=== PATIENT | female | born 1935 | race Caucasian/White ===

== ENCOUNTER → 2017-05-26 | Outpatient (REF) | payer MEDICARE ==
[2017-05-26 12:48] LABS: MEAN CORPUSCULAR HEMOGLOBIN 31.1 pg (27.0-33.0); MEAN CORPUSCULAR HGB CONC 32.6 g/dl (32.0-36.5); MEAN CORPUSCULAR VOLUME 95.4 fl (80.0-96.0); PLATELET COUNT, AUTOMATED 162 10^3/uL (150-450); RED CELL DISTRIBUTION WIDTH 12.2 % (11.5-14.5); WHITE BLOOD COUNT 5.8 10^3/uL (4.0-10.0)
[2017-05-26 13:09] LABS: ADD MANUAL DIFFER YES; DIFF SLIDE NUMBER 137; PLT CLUMPS? POS FLAG; POS COUNT POS FLAG
[2017-05-26 13:20] LABS: ALBUMIN 3.8 GM/DL (3.2-5.2); ALBUMIN/GLOBULIN RATIO 1.15 (1.00-1.93); ALKALINE PHOSPHATASE 73 U/L (45-117); ALT/SGPT 18 U/L (12-78); ANION GAP 6 MEQ/L (8-16); AST/SGOT 11 U/L (7-37); BILIRUBIN,TOTAL 0.4 MG/DL (0.2-1.0); BLOOD UREA NITROGEN 20 MG/DL (7-18); CALCIUM LEVEL 9.7 MG/DL (8.8-10.2); CARBON DIOXIDE LEVEL 29 MEQ/L (21-32); CHLORIDE LEVEL 105 MEQ/L (98-107); CHOLESTEROL LEVEL 237 MG/DL (<200); CREATININE FOR GFR 0.77 MG/DL (0.55-1.02); GLOMERULAR FILTRATION RATE > 60.0 (>32); GLUCOSE, FASTING 98 MG/DL (83-110); SODIUM LEVEL 140 MEQ/L (136-145); TOTAL PROTEIN 7.1 GM/DL (6.4-8.2); TRIGLYCERIDES LEVEL 230 MG/DL (<150)
[2017-05-26 13:23] LABS: POTASSIUM SERUM 5.4 MEQ/L (3.5-5.1)
[2017-05-26 13:26] LABS: BASOPHILS 1 % (0-4); EOSINOPHILS 2 % (0-5)
== END ==
LOC: M SFHCADAM 09:25
PROVIDERS: ATTEND Physician Assistant Medical
DX: E78.4 Other hyperlipidemia (principal); G47.00 Insomnia, unspecified

== ENCOUNTER 2018-04-12 05:57 | Day surgery (SDC) | payer MEDICARE ==
[2018-04-12] MEDS: OFLOXACIN 0.3 % (OCUFLOX) OPTH SOL 5ML OD (06:41)
[2018-04-12] MEDS: PROPARACAINE 0.5% OPHTH SOL 15ML OD (06:41)
[2018-04-12] MEDS: BALANCED SALT IRRIGATION SOLUTION 500ML BAG (FOR OR EYE MACHINE) As Ordered (06:56)
[2018-04-12] MEDS: ACETYLCHOLINE OPHTH SOLN 1% 2ML (MIOCHOL-E) As Ordered (06:57)
[2018-04-12] MEDS: LIDOCAINE 0.75%/EPINEPHRINE 0.025% IN BSS 1ML SYR INTRACAMERAL (OR ONLY) As Ordered ×2 (06:57→07:02)
[2018-04-12] MEDS: DUOVISC (0.50ML VISCOAT/0.55ML PROVISC) OPHTH KIT As Ordered (06:57)
[2018-04-12] MEDS: MOXIFLOXACIN IN BSS 0.25MG/0.25ML INTRACAMERAL INJ (OR EYE ONLY)(J2280) As Ordered (07:04)
[2018-04-12] MEDS ORDERED: fentaNYL 100 MCG/2 ML INJECTION (J3010) As Ordered (07:06)
[2018-04-12] MEDS ORDERED: MIDAZOLAM INJ 2 MG/2 ML VIAL (J2250) As Ordered (07:06)
[2018-04-12] MEDS: POVIDONE-IODINE 5% OPHTH PREP SOL 30ML As Ordered (07:32)
== END 2018-04-12 08:30 | disposition home or self-care (01) ==
LOC: M SDC 05:57
DX: H52.201 Unspecified astigmatism, right eye (principal); M12.9 Arthropathy, unspecified; Z90.710 Acquired absence of both cervix and uterus; Z94.7 Corneal transplant status
CPT/HCPCS: 65772

== ENCOUNTER → 2018-05-15 | Outpatient (REF) | payer MEDICARE ==
[2018-05-15 20:12] LABS: ANION GAP 5 MEQ/L (8-16); BLOOD UREA NITROGEN 13 MG/DL (7-18); CALCIUM LEVEL 9.4 MG/DL (8.8-10.2); CARBON DIOXIDE LEVEL 31 MEQ/L (21-32); CHLORIDE LEVEL 102 MEQ/L (98-107); CREATININE FOR GFR 0.67 MG/DL (0.55-1.30); GLOMERULAR FILTRATION RATE > 60.0 (>32); GLUCOSE, FASTING 75 MG/DL (70-100); SODIUM LEVEL 138 MEQ/L (136-145)
[2018-05-15 20:13] LABS: APPEARANCE, URINE CLEAR (CLEAR); BACTERIA, URINE AUTO 1+ (NEGATIVE); BILIRUBIN, URINE AUTO NEGATIVE (NEGATIVE); BLOOD, URINE BLOOD 1+ (NEGATIVE); COLOR, URINE YELLOW (YELLOW); GLUCOSE, URINE (UA) AUTO NEGATIVE (NEGATIVE); KETONE, URINE AUTO NEGATIVE (NEGATIVE); LEUKOCYTE ESTERASE, URINE AUTO 3+ (NEGATIVE); NITRITE, URINE AUTO NEGATIVE (NEGATIVE); PROTEIN, URINE AUTO NEGATIVE (NEGATIVE); RBC, URINE AUTO 1 /HPF (0-3); SPECIFIC GRAVITY URINE AUTO 1.005 (1.002-1.035); SQUAMOUS EPITHELIAL CELL UR AU 1 /HPF (0-6); UROBILINOGEN, URINE AUTO 0.2 mg/dL (0.0-2.0); WBC, URINE AUTO 34 /HPF (0-3)
== END ==
LOC: M SFHCADAM 15:49
DX: N39.41 Urge incontinence (principal); M17.11 Unilateral primary osteoarthritis, right knee
CPT/HCPCS: 80048

== ENCOUNTER → 2019-05-02 | Outpatient (REF) | payer MEDICARE ==
[~2019-05-02] MED LIST: DICL75TA PO; TYLE500T78 PO; VITA100066 PO
[2019-05-02 17:00] LABS: BASO # 0.1 10^3/uL (0.0-0.2); EOS # 0.5 10^3/uL (0.0-0.5); EOS % 7.2 % (0.0-3.0); HEMATOCRIT 40.9 % (36.0-47.0); HEMOGLOBIN 13.1 g/dl (12.0-15.5); LYMPH # 2.3 10^3/uL (1.5-5.0); LYMPH % 34.3 % (24.0-44.0); MEAN CORPUSCULAR HEMOGLOBIN 31.5 pg (27.0-33.0); MEAN CORPUSCULAR VOLUME 98.3 fl (80.0-96.0); MONO # 0.6 10^3/uL (0.0-0.8); MONO % 8.9 % (0.0-5.0); NEUTROPHILS # 3.3 10^3/uL (1.5-8.5); NEUTROPHILS % 48.3 % (36.0-66.0); PLATELET COUNT, AUTOMATED 240 10^3/uL (150-450); RED BLOOD COUNT 4.16 10^6/uL (4.00-5.40); WHITE BLOOD COUNT 6.8 10^3/uL (4.0-10.0)
[2019-05-02 17:09] LABS: ALBUMIN 3.6 GM/DL (3.2-5.2); ALT/SGPT 24 U/L (12-78); BILIRUBIN,TOTAL 0.3 MG/DL (0.2-1.0); BLOOD UREA NITROGEN 21 MG/DL (7-18); CALCIUM LEVEL 9.6 MG/DL (8.8-10.2); CARBON DIOXIDE LEVEL 31 MEQ/L (21-32); CHLORIDE LEVEL 105 MEQ/L (98-107); CHOLESTEROL LEVEL 241 MG/DL (<200); CHOLESTEROL RISK RATIO 4.918 (<5); CREATININE FOR GFR 0.82 MG/DL (0.55-1.30); GLOMERULAR FILTRATION RATE > 60.0 (>32); GLUCOSE, FASTING 78 MG/DL (70-100); HDL CHOLESTEROL 49 MG/DL (>40); LDL CHOLESTEROL 127 MG/DL (<100); NON-HDL-C 192 MG/DL; POTASSIUM SERUM 4.9 MEQ/L (3.5-5.1); SODIUM LEVEL 139 MEQ/L (136-145); TRIGLYCERIDES LEVEL 324 MG/DL (<150)
== END ==
LOC: M SFHCADAM 13:19
PROVIDERS: ATTEND Physician Assistant Medical
DX: E78.5 Hyperlipidemia, unspecified (principal); G47.00 Insomnia, unspecified; M17.11 Unilateral primary osteoarthritis, right knee

== ENCOUNTER → 2019-07-04 | Outpatient (CLI) | payer MEDICARE ==
--- NOTE | 2019-07-04 12:22 | REP ---
DIGITAL DIAGNOSTIC BILATERAL MAMMOGRAPHY WITH CAD: HISTORY: Screening mammography from an outside facility May 30, 2019 was reported as bilaterally abnormal. Diagnostic imaging was recommended. This patient had a remote prior mammography as well and this was retrieved from [facility] dated June 20, 2012. Screening study from 05/30/2019 was read as showing a 7 mm nodule in the right breast 4 cm from the nipple and a 3 mm nodule in the right breast inferiorly. In addition there was an asymmetric fibroglandular tissue density in the right breast upper outer quadrant reported. The left breast mammogram was reported as showing a 5 mm circumscribed rounded nodule on the MLO view superiorly possible intramammary lymph node. MAMMOGRAPHIC FINDINGS: Magnified focal spot compression CC and MLO views of each breast were obtained along with magnified true mediolateral projection images. There are scattered fibroglandular densities. In comparison with the 2011 prior mammography, the findings are entirely unchanged. The asymmetric density is seen in the upper outer quadrant on the right. Stable well-circumscribed nodules are seen in the upper outer quadrant and inferior aspect of the right breast. There are bilateral normal-appearing lymph nodes which are unchanged. This includes a lymph node in question in the left axillary region. This is 6 mm in diameter. IMPRESSION: BIRADS 2: BI-RADS/ACR category 2 mammogram. Benign Findings. Findings are stable from the 2012 prior mammography. BIRADS category 2 benign findings. Repeat screening mammography recommended 1 year. This mammogram was interpreted with the aid of an FDA-approved computer-aided detection system. The patient states that she/he has not had a clinical breast exam in over a year. The patient letter being requested is M1. This patient's estimated Tyrer-Cuzick lifetime risk assessment for the breast cancer is 0.9 %. Electronically Signed by Ivan Marquis MD 07/04/2019 06:27 P
== END ==
LOC: M RAD 08:54
PROVIDERS: ATTEND Physician Assistant Medical
DX: R92.8 Other abnormal and inconclusive findings on diagnostic imaging of breast (principal)
CPT/HCPCS: 77066; G0279

== ENCOUNTER → 2020-06-23 | Outpatient (REF) | payer MEDICARE ==
[2020-06-23 12:48] LABS: BASO # 0.1 10^3/uL (0.0-0.2); BASO % 1.2 % (0.0-1.0); EOS # 0.4 10^3/uL (0.0-0.5); EOS % 5.3 % (0.0-3.0); HEMATOCRIT 41.3 % (36.0-47.0); HEMOGLOBIN 13.3 g/dl (12.0-15.5); LYMPH # 2.7 10^3/uL (1.5-5.0); LYMPH % 36.3 % (24.0-44.0); MEAN CORPUSCULAR HEMOGLOBIN 31.3 pg (27.0-33.0); MEAN CORPUSCULAR HGB CONC 32.2 g/dl (32.0-36.5); MEAN CORPUSCULAR VOLUME 97.2 fl (80.0-96.0); MONO # 0.6 10^3/uL (0.0-0.8); MONO % 7.7 % (0.0-5.0); NEUTROPHILS # 3.6 10^3/uL (1.5-8.5); NEUTROPHILS % 49.2 % (36.0-66.0); PLATELET COUNT, AUTOMATED 185 10^3/uL (150-450); RED BLOOD COUNT 4.25 10^6/uL (4.00-5.40); WHITE BLOOD COUNT 7.4 10^3/uL (4.0-10.0)
[2020-06-23 13:44] LABS: ALBUMIN 3.6 GM/DL (3.2-5.2); ALT/SGPT 18 U/L (12-78); BILIRUBIN,TOTAL 0.5 MG/DL (0.2-1.0); BLOOD UREA NITROGEN 19 MG/DL (7-18); CALCIUM LEVEL 10.1 MG/DL (8.8-10.2); CARBON DIOXIDE LEVEL 30 MEQ/L (21-32); CHLORIDE LEVEL 105 MEQ/L (98-107); CHOLESTEROL LEVEL 260 MG/DL (<200); CHOLESTEROL RISK RATIO 5.306 (<5); CREATININE FOR GFR 0.73 MG/DL (0.55-1.30); GLOMERULAR FILTRATION RATE > 60.0 (>32); GLUCOSE, FASTING 76 MG/DL (70-100); HDL CHOLESTEROL 49 MG/DL (>40); LDL CHOLESTEROL 163 MG/DL (<100); NON-HDL-C 211 MG/DL; POTASSIUM SERUM 4.9 MEQ/L (3.5-5.1); SODIUM LEVEL 140 MEQ/L (136-145); TOTAL PROTEIN 6.9 GM/DL (6.4-8.2); TRIGLYCERIDES LEVEL 238 MG/DL (<150)
== END ==
LOC: M SFHCADAM 09:44
PROVIDERS: ATTEND Physician Assistant Medical
DX: E78.5 Hyperlipidemia, unspecified (principal); G47.00 Insomnia, unspecified

== ENCOUNTER 2020-08-07 14:12 | Inpatient (IN) | payer MEDICARE ==
[~2020-08-07] VITALS: Ht 167.6 cm; Wt 75.9 kg
[2020-08-07 10:20] VITALS: BP 132/83
[2020-08-07 10:50] VITALS: BP 140/68
[~2020-08-07 14:12] MED LIST changes: -ACET500T15 PO; -D31000TA2 PO; -DOK1CAP7 PO; -FISH1000 PO; -MOM30SS2 PO; -PERCOCET PO; -REST0.05 OU; -VITA-158 PO; -XARE10TA PO; -ZINC1TAB2 PO
--- OUTSIDE RECORDS SUMMARY | 2020-08-07 14:17 | CCD ---
Author Author [facility] Organization [facility] Address Unknown Phone Unavailable Care Team Providers Care Vibrator Operator Name Role Phone Elda Drew Unavailable PROBLEMS Type Condition ICD9-CM Code [id number] Code Onset Dates Condition S tatus SNOMED Code Notes Problem Urge incontinence N39.41 Active 11100290 Problem Abnormal mammogram of both breasts R92.8 Activ e 003787282 Problem Hyperlipidemia, unspecified E78.5 Active 5582 2004 Problem Insomnia, unspecified G47.00 Active 531697750 Problem Primary osteoarthritis of right knee M17.11 Act crissy [id number] ALLERGIES No Known Allergies ENCOUNTERS from 1937 to 2020-06-25 Encounter Location Date Provider Diagnosis [address] [place] [address] 29 May, 2020 Mar ben Drew Medicare annual wellness visit, subsequent Z00.00 ; Hyperlipidemia, unspecified E78.5 ; Insomnia, unspecified G47.00 and Primary osteoarthritis of right knee M17.11 IMMUNIZATIONS Vaccine Route Administration Date Status Zoster 0.65mL (Zostavax) Unknown Jun 05, 2013 Adminis tered TDAP 0.5mL (Boostrix) IM Intramuscular December 26, 2013 Administe red SOCIAL HISTORY Sex Assigned At : Social History Observation Description Sex Assigned At Unknown Education: Question Answer Notes Level of Education: Not Finished College Audit Question Answer Notes Total Score: 0 Interpretation: Alcohol Education Language: Question Answer Notes Languages spoken: Mongolian Muslim: Question Answer Notes Muslim [employer] and Alcohol Question Answer Notes Total Score: 0 Interpretation: No problems reported Alcohol Screening: Question Answer Notes Did you have a drink containing alcohol in the past year? Ye s Points 1 Interpretation Negative How often did you have six or more drinks on one occas ion in the past year? Never (0 points) How many drinks did you have on a typica l day when you were drinking in the past year? 1 or 2 (0 points) How often did you have a drink containing alcohol in t he past year? Monthly or less (1 point) BMI Care Goal Follow-Up Question Answer Notes Above Normal BMI Follow-Up Weight monitoring REASON FOR REFERRAL No Information VITAL SIGNS Weight 177 lbs May, Height 66 in May, BMI 28.57 kg/m2 May, Heart Rate 115 /min May, Respiratory Rate 20 /min May, Temperature 97.5 degrees Fahrenheit May, Oximetry 97 May, Blood pressure systolic 140 mm Hg May, Blood pressure diastolic 66 mm Hg May, MEDICATIONS Medication SIG (Take, Route, Frequency, Duration) Notes Start Da te End Date Status Tessalon Perles 100 MG 1 capsule as needed Orally Three times a day for 10 Active Diclofenac Sodium 75 mg 1 tablet Orally Once a day for 90 Active Alprazolam 0.25 MG 1 tablet Orally before bed as needed for 30 d ay(s) Jun, Active Tylenol 325 MG 2 tabs Orally Daily A ctive Oxybutynin Chloride ER 5 MG 1 tablet Orally Once a day for 90 Not-Taking PROCEDURES No Information RESULTS Component Value Reference Range CBC with Differential Reviewed date:06/23/2020 13:51:51 Interpretation: Performing Lab:[facility], [facility] [address] [address] , ,[place] [address] WHITE BLOOD COUNT 7.4 4.0-10.0 RED BLOOD COUNT 4.25 4.00-5.40 HEMOGLOBIN 13.3 12.0-15.5 HEMATOCRIT 41.3 36.0-47.0 MEAN CORPUSCULAR VOLUME 97.2 80.0-96.0 MEAN CORPUSCULAR HEMOGLOBIN 31.3 27.0-33.0 MEAN CORPUSCULAR HGB CONC 32.2 32.0-36.5 RED CELL DISTRIBUTION WIDTH 12.1 11.5-14.5 PLATELET COUNT, AUTOMATED 185 150-450 NEUTROPHILS % 49.2 36.0-66.0 LYMPH % 36.3 24.0-44.0 MONO % 7.7 0.0-5.0 EOS % 5.3 0.0-3.0 BASO % 1.2 0.0-1.0 NEUTROPHILS # 3.6 1.5-8.5 LYMPH # 2.7 1.5-5.0 MONO # 0.6 0.0-0.8 EOS # 0.4 0.0-0.5 BASO # 0.1 0.0-0.2 Comprehensive Metabolic Profile (CMP) Reviewed date:06/23/2020 13:51:51 Interpretation: Performing Lab:[facility] [address] [facility] [address] , ,[place] [address] GLUCOSE, FASTING 76 70-100 BLOOD UREA NITROGEN 19 7-18 CREATININE FOR GFR 0.73 0.55-1.30 GLOMERULAR FILTRATION RATE > 60.0 >32 SODIUM LEVEL 140 136-145 POTASSIUM SERUM 4.9 3.5-5.1 CHLORIDE LEVEL 105 98-107 CARBON DIOXIDE LEVEL 30 21-32 CALCIUM LEVEL 10.1 8.8-10.2 AST/SGOT 9 7-37 ALT/SGPT 18 12-78 ALKALINE PHOSPHATASE 77 45-117 BILIRUBIN,TOTAL 0.5 0.2-1.0 TOTAL PROTEIN 6.9 6.4-8.2 ALBUMIN 3.6 3.2-5.2 ALBUMIN/GLOBULIN RATIO 1.1 1.2-2.2 LIPID PANEL (CARDIAC RISK) Reviewed date:06/23/2020 13:51:51 Interpretation: Performing Lab:[facility] [address] [facility] [address] , ,[place] [address] TRIGLYCERIDES LEVEL 238 <150 CHOLESTEROL LEVEL 260 <200 HDL CHOLESTEROL 49 >40 LDL CHOLESTEROL 163 <100 NON-HDL-C 211 CHOLESTEROL RISK RATIO 5.306 <5 TSH Reviewed date:06/23/2020 13:51:51 Interpretation: Performing Lab:[facility] [address] [facility] [address] , ,[place] [address] THYROID STIMULATING HORMONE 2.580 0.358-3.740 REASON FOR VISIT annual MEDICAL (GENERAL) HISTORY Type Description Date Medical History hyperlipidemia - h/o noncompliance with medication Medical History anxiety Medical History hypomagnesemia Medical History h/o disc herniation, Lspine Medical History 07/07 nl CXR Medical History insomnia Medical History 04/04 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 May, Hyperlipidemia, unspecified (ICD-10 - E78.5) Repeat BW today. May, Insomnia, unspecified (ICD-10 - G47.00) May, Primary osteoarthritis of right knee (ICD-10 - M 17.11) Stable. PLAN OF TREATMENT Treatment Notes Assessment Notes Clinical Notes Medicare annual wellness visit, subsequent Counseled RHM, sa fety, imms. Hyperlipidemia, unspecified Repeat BW today. Primary osteoarthritis of right knee Stable. Next Appt Details BW today, f/u in 1 y. Reason: Insurance Providers Payer Name Payer Address Payer Phone Insured Name Patient Relati onship to Insured Coverage Start Date Coverage End Date MEDICARE BLUE PPO [address] [id number] JASMINE GIBBS self
--- OUTSIDE RECORDS SUMMARY | 2020-08-07 14:17 | CCD ---
Author Author [facility] Organization [facility] Address Unknown Phone Unavailable Care Team Providers Care English Composition Teacher Name Role Phone DINA (CONNER), N MARY RPA-C Unavailable Unavailable DINA (CONNER), N MARY RPA-C Unavailable Unavailable IDNA (CONNER), N MARY RPA-C Unavailable Unavailable DINA (CONNER), N MARY RPA-C Unavailable Unavailable DINA (CONNER), N MARY RPA-C Unavailable Unavailable DINA (CONNER), N MARY RPA-C Unavailable Unavailable DINA (CONNER), N MARY RPA-C Unavailable Unavailable DINA (CONNER), N MARY RPA-C Unavailable Unavailable DINA (CONNER), N MARY RPA-C Unavailable Unavailable DINA (CONNER), N MARY RPA-C Unavailable Unavailable DINA (CONNER), N MARY RPA-C Unavailable Unavailable DINA (CONNER), N MARY RPA-C Unavailable Unavailable DINA (CONNER), N MARY RPA-C Unavailable Unavailable DINA (CONNER), N MARY RPA-C Unavailable Unavailable DINA (CONNER), N MARY RPA-C Unavailable Unavailable DINA (CONNER), N MARY RPA-C Unavailable Unavailable DINA (CONNER), N MARY RPA-C Unavailable Unavailable DINA (CONNER), N MARY RPA-C Unavailable Unavailable DINA (CONNER), N MARY RPA-C Unavailable Unavailable DINA (CONNER), N MARY RPA-C Unavailable Unavailable DINA (CONNER), N MARY RPA-C Unavailable Unavailable DINA (CONNER), N MARY RPA-C Unavailable Unavailable DINA (CONNER), N MARY RPA-C Unavailable Unavailable DINA (CONNER), N MARY RPA-C Unavailable Unavailable DINA (CONNER), N MARY RPA-C Unavailable Unavailable DINA (CONNER), N MARY RPA-C Unavailable Unavailable DINA (CONNER), N MARY RPA-C Unavailable Unavailable DINA (CONNER), N MARY RPA-C Unavailable Unavailable DINA (CONNER), N MRAY RPA-C Unavailable Unavailable DINA (CONNER), N MARY RPA-C Unavailable Unavailable DINA (CONNER), N MARY RPA-C Unavailable Unavailable DINA (CONNER), N MARY RPA-C Unavailable Unavailable DINA (CONNER), N MARY RPA-C Unavailable Unavailable DINA (CONNER), N MARY RPA-C Unavailable Unavailable DINA (CONNER), N MARY RPA-C Unavailable Unavailable DINA (CONNER), N MARY RPA-C Unavailable Unavailable DINA (CONNER), N MARY RPA-C Unavailable Unavailable DINA (CONNER), N MARY RPA-C Unavailable Unavailable DINA (CONNER), N MARY RPA-C Unavailable Unavailable DINA (CONNER), N MARY RPA-C Unavailable Unavailable DINA (CONNER), N MARY RPA-C Unavailable Unavailable DINA (CONNER), N MARY RPA-C Unavailable Unavailable DINA (CONNER), N MARY RPA-C Unavailable Unavailable DINA (CONNER), N MARY RPA-C Unavailable Unavailable DINA (CONNER), N MARY RPA-C Unavailable Unavailable DINA (CONNER), N MARY RPA-C Unavailable Unavailable DINA (CONNER), N MARY RPA-C Unavailable Unavailable DINA (CONNER), N MARY RPA-C Unavailable Unavailable DINA (CONNER), N MARY RPA-C Unavailable Unavailable DINA (CONNER), N MARY RPA-C Unavailable Unavailable DINA (CONNER), N MARY RPA-C Unavailable Unavailable DINA (CONNER), N MARY RPA-C Unavailable Unavailable DINA (CONNER), N MARY RPA-C Unavailable Unavailable Re-disclosure Warning The records that you are about to access may contain information from federally-assisted alcohol or drug abuse programs. If such information is present, then the following federally mandated warning applies: This information has been disclosed to you from records protected by federal confidentiality rules (42 CFR part 2). The federal rules prohibit you from making any further disclosure of this information unless further disclosure is expressly permitted by the written consent of the person to whom it pertains or as otherwise permitted by 42 CFR part 2. A general authorization for the release of medical or other information is NOT sufficient for this purpose. The Federal rules restrict any use of the information to criminally investigate or prosecute any alcohol or drug abuse patient.The records that you are about to access may contain highly sensitive health information, the redisclosure of which is protected by Article 27-F of the [facility] Public Health law. If you continue you may have access to information: Regarding HIV / AIDS; Provided by facilities licensed or operated by the [facility] Office of Mental Health; or Provided by the [facility] Office for People With Developmental Disabilities. If such information is present, then the following [facility] mandated warning applies: This information has been disclosed to you from confidential records which are protected by state law. State law prohibits you from making any further disclosure of this information without the specific written consent of the person to whom it pertains, or as otherwise permitted by law. Any unauthorized further disclosure in violation of state law may result in a fine or long-term sentence or both. A general authorization for the release of medical or other information is NOT sufficient authorization for further disc losure. Family History Family Member Name Family Member Gender Family Member Status Date o f Status Description Data Source(s) Unknown Unknown Problem [facility] ([facility], [facility]) Encounters Encounter Providers Location Date Indications Data Source(s ) Outpatient [address] [facility] [id number] 06/23/2020 12:00:00 AM EST eCW1 ([facility]) [facility] [place] [address] [facility] [place] [address] 07/12/2019 12:00:00 AM EST eCW1 ([facility]) [facility] [place] [address] [facility] [address] [address] 07/02/2019 12:00:00 AM EST eCW1 ([facility]) [place] [id number] [facility] [place] [address] 06/17/2019 12:00:00 AM EST eCW1 ([facility]) Outpatient Referrer: MARY SAM) NEGRO-C 05/30 12:00:00 AM EST Encounter for other screening for malignant neoplasm of breast [facility] Encounter for other screening for malign ant neoplasm of breast Medications Medication Brand Name Start Date Product Form Dose Route Admi nistrative Instructions Pharmacy Instructions Status Indications Reaction Description Data Source(s) 0.05 % 07/21/2020 12:00:00 AM EST dropperette 60 INSTILL ONE DROP INTO BOTH EYES TWO TIMES A DAY INSTILL ONE DROP INTO BOTH EYES TWO TIMES A DAY SOLD: 07/25/2020 [facility] 100 mcg/0.5 mL 07/12/2020 12:00:00 AM EST suspension 0 INJECT BY RPH (FIRST DOSE) INJECT BY RP (FIRST DOSE) SOLD: 07/12/2020 [facility] Diclofenac Sodium 75 MG Delayed Release Oral Tablet DICLOFEN AC SODIUM 04/11/2020 12:00:00 AM EDT tablet,delayed release (DR/EC) 90 T TREMAYNE ONE TABLET BY MOUTH EVERY DAY TAKE ONE TABLET BY MOUTH EVERY DAY SOLD: 04/12/2020 [facility] Diclofenac Sodium 75 MG Delayed Release Oral Tablet DICLOFEN AC SODIUM 04/11/2020 12:00:00 AM EDT tablet,delayed release (DR/EC) 90 T TREMAYNE ONE TABLET BY MOUTH EVERY DAY TAKE ONE TABLET BY MOUTH EVERY DAY SOLD: 07/12/2020 [facility] 5 mg 09/10/2019 12:00:00 AM EDT tablet extended release 24hr 90 TAKE ONE TABLET BY MOUTH EVERY DAY TAKE ONE TABLET BY MOUTH EVERY DAY SOLD: 09/11/2019 [facility] benzonatate 100 MG Oral Capsule BENZONATATE 08/19/2019 12:00:00 AM EST capsule 30 TAKE ONE CAPSULE BY MOUTH THREE TIMES A DAY NEEDED TAKE ONE CAPSULE BY MOUTH THREE TIMES A DAY NEEDED SOLD: 08/20/2019 [facility] Alprazolam 0.25 MG Oral Tablet ALPRAZOLAM 07/04/2019 12:00:00 AM EST tablet 30 TAKE 1 TABLET BY MOUTH BEFORE BED NEEDED MAXIMUM DA ROXANN DOSE = 1 TAKE 1 TABLET BY MOUTH BEFORE BED NEEDED MAXIMUM DAILY DOSE = 1 SOLD: 07/06/2019 [facility] 0.2 % 07/03/2019 12:00:00 AM EST drops 10 INSTILL 1 DROP IN EACH EYE EVERY MORNING INSTILL 1 DROP IN EACH EYE EVERY MORNING SOLD: 12/27/2019 [facility] 0.2 % 07/03/2019 12:00:00 AM EST drops 10 INSTILL 1 DROP IN EACH EYE EVERY MORNING INSTILL 1 DROP IN EACH EYE EVERY MORNING SOLD: 07/06/2019 [facility] Alprazolam 0.25 MG Oral Tablet Alprazolam 0.25 MG 07/02/2019 12:00: 00 AM EST 1.0 {tablet} active Alprazolam 0.25 MG [facility] Alprazolam 0.25 MG Oral Tablet Alprazolam 0.25 MG 07/02/2019 12:00: 00 AM EST active 1 tablet [facility]) 75 mg 06/10/2019 12:00:00 AM EST tablet,delayed release (DR/EC) 90 TAKE ONE TABLET BY MOUTH EVERY DAY TAKE ONE TABLET BY MOUTH EVERY DAY SOLD: 06/10/2019 [facility] 75 mg 06/10/2019 12:00:00 AM EST tablet,delayed release (DR/EC) 90 TAKE ONE TABLET BY MOUTH EVERY DAY TAKE ONE TABLET BY MOUTH EVERY DAY SOLD: 08/20/2019 [facility] 75 mg 06/10/2019 12:00:00 AM EST tablet,delayed release (DR/EC) 90 TAKE ONE TABLET BY MOUTH EVERY DAY TAKE ONE TABLET BY MOUTH EVERY DAY SOLD: 11/01/2019 [facility] 75 mg 06/10/2019 12:00:00 AM EST tablet,delayed release (DR/EC) 90 TAKE ONE TABLET BY MOUTH EVERY DAY TAKE ONE TABLET BY MOUTH EVERY DAY SOLD: 01/25/2020 [facility] 5 mg 03/29/2019 12:00:00 AM EDT tablet extended release 24hr 90 TAKE ONE TABLET BY MOUTH EVERY DAY TAKE ONE TABLET BY MOUTH EVERY DAY SOLD: 06/10/2019 [facility] Insurance Providers Payer name Policy type / Coverage type Policy ID Covered republican ID Covered republican's relationship to etienne Policy Etienne Plan Information MEDICARE BLUE PPO [id number] SP [id number] MEDICARE BLUE PPO [id number] SP [id number] [employer]CE[employer] MEDICARE BLUE PPO G [id number] Self [id number] ANSI-Medicare Part B [id number] ANSI-Medicare Part B [id number] ANSI-Medicare Part B [id number] MEDICARE BLUE PPO [id number] SP [id number] ANSI-Medicare Part B [id number] [place] Other 0 Self 0 [place] Other 0 Self 0 [place] Other 0 Self 0 [place] Other 0 Self 0 [place] Other 0 Self 0 BS Medicare Blue Ppo/Hmo Commercial Self BLUE CROSS BLUE SHIELD-CLINIC [id number] 18 [id number] BLUE CROSS BLUE SHIELD-O/P [id number] 18 [id number] [facility] OPTIONS-O/P [id number] 18 [id number] BLUE CROSS BLUE SHIELD-O/P [id number] 18 [id number] BLUE CROSS BLUE SHIELD-O/P [id number] 18 [id number] Problems, Conditions, and Diagnoses Code Display Name Description Problem Type Effective Dates Data Source(s) R92.8 [id number] Abnormal mammogram of both breasts [facility] 06/17/2019 12:00:00 AM EST [facility] R92.8 [id number] Abnormal mammogram of both breasts [facility] 06/17/2019 12:00:00 AM EST [facility]) Results ID Date Data Source TSH 06/23/2020 12:00:00 AM EST eCW1 ([facility]) Name Value Range Interpretation Code Description Data Debbi rce(s) Supporting Document(s) 2.580 0.358-3.740 THYROID STIMULATING HORM ONE eCW1 ([facility]) ID Date Data Source LIPID PANEL (CARDIAC RISK) 06/23/2020 12:00:00 AM EST eCW1 ( [facility]) Name Value Range Interpretation Code Description Data Debbi rce(s) Supporting Document(s) 211 NON-HDL-C eCW1 ([facility]) Triglyceride [Mass/volume] in Serum or Plasma by calculation 238 <150 TRIGLYCERIDES LEVEL eCW1 ([facility]) Cholesterol in HDL [Moles/volume] in Serum or Plasma 49 >40 HDL CHOLESTEROL eCW1 ([facility]) Cholesterol [Moles/volume] in Serum or Plasma 260 <200 CHOLESTEROL LEVEL eCW1 ([facility]) Cholesterol in LDL [Mass/volume] in Serum or Plasma by calculation 163 <100 LDL CHOLESTEROL eCW1 ([facility]) 5.306 <5 CHOLESTEROL RISK RATIO eCW1 ([facility]) ID Date Data Source Comprehensive Metabolic Profile (CMP) 06/23/2020 12:00:00 AM EST eCW1 ([facility]) Name Value Range Interpretation Code Description Data Debbi rce(s) Supporting Document(s) 76 70-100 GLUCOSE, FASTING eCW1 ([facility]) 140 136-145 SODIUM LEVEL eCW1 ([facility]) 19 7-18 BLOOD UREA NITROGEN eCW1 ([facility]) 0.73 0.55-1.30 CREATININE FOR GFR eCW1 ([facility]) > 60.0 >32 GLOMERULAR FILTRATION RATE eCW 1 ([facility]) 30 21-32 CARBON DIOXIDE LEVEL eCW1 ([facility]) 10.1 8.8-10.2 CALCIUM LEVEL eCW1 ([facility]) 105 98-107 CHLORIDE LEVEL eCW1 ([facility]) 4.9 3.5-5.1 POTASSIUM SERUM eCW1 ([facility]) 9 7-37 AST/SGOT eCW1 ([facility]) 77 45-117 ALKALINE PHOSPHATASE eCW1 ([facility]) 6.9 6.4-8.2 TOTAL PROTEIN eCW1 ([facility]) 18 12-78 ALT/SGPT eCW1 ([facility]) 0.5 0.2-1.0 BILIRUBIN,TOTAL eCW1 ([facility]) 3.6 3.2-5.2 ALBUMIN eCW1 ([facility]) 1.1 1.2-2.2 ALBUMIN/GLOBULIN RATIO eCW1 ([facility]) ID Date Data Source CBC with Differential 06/23/2020 12:00:00 AM EST eCW1 ([facility]) Name Value Range Interpretation Code Description Data Debbi rce(s) Supporting Document(s) 7.4 4.0-10.0 WHITE BLOOD COUNT eCW1 ([facility]) 4.25 4.00-5.40 RED BLOOD COUNT eCW1 ([facility]) 31.3 27.0-33.0 MEAN CORPUSCULAR HEMOGLOB IN eCW1 ([facility]) 41.3 36.0-47.0 HEMATOCRIT eCW1 ([facility]) 13.3 12.0-15.5 HEMOGLOBIN eCW1 ([facility]) 97.2 80.0-96.0 MEAN CORPUSCULAR VOLUME e CW1 ([facility]) 185 150-450 PLATELET COUNT, AUTOMATED eCW1 ([facility]) 12.1 11.5-14.5 RED CELL DISTRIBUTION WID TH eCW1 ([facility]) 32.2 32.0-36.5 MEAN CORPUSCULAR HGB CONC eCW1 ([facility]) 49.2 36.0-66.0 NEUTROPHILS % eCW1 ([facility]) 3.6 1.5-8.5 NEUTROPHILS # eCW1 ([facility]) 1.2 0.0-1.0 BASO % eCW1 ([facility]) 7.7 0.0-5.0 MONO % eCW1 ([facility]) 5.3 0.0-3.0 EOS % eCW1 ([facility]) 36.3 24.0-44.0 LYMPH % eCW1 ([facility]) 0.4 0.0-0.5 EOS # eCW1 ([facility]) 2.7 1.5-5.0 LYMPH # eCW1 ([facility]) 0.6 0.0-0.8 MONO # eCW1 ([facility]) 0.1 0.0-0.2 BASO # eCW1 ([facility]) ID Date Data Source [id number] 06/13/2019 04:26:22 PM [facility] MAMMO DIGITAL SCREENING BILATERAL [id number] INAL RESULTInterpreted by:Jo Ann Son MDBILATERAL DIGITAL SCREENING MAMMOGRAMINDICATION: Screening mammogram. Comparison: The patient reports prior mammograms performed at an outside facility, however no prior outside mammograms could be obtained for comparison.LAST CLINICAL BREAST EXAM: Date not listed by patientTECHNIQUE: Routine mammographic views were obtained of both breasts with tomosynthesis. The study was interpreted with the assistance of CAD. This mammogram was performed on the mobile mammography unit.FINDINGS: There are scattered areas of fibrog landular density. Density category B. RIGHT BREAST: There is a circumscribed oval mass measuring approximately 7 mm in the upper outer quadrant, 4 cm from the nipple. There is also a circumscribed 3 mm round mass with rim calcification in the inferior breast approximately 5-6 o'clock position, 5-6 cm from the nipple. Additionally, there is a focal asymmetry in the right breast upper outer quadrant, 8 cm from the nipple. The appearance is suggestive of asymmetric fibroglandular tissue. Additional imaging evaluation is warranted for these findings. No suspicious calcifications or areas of architectural distortion are seen.LEFT BREAST: There is a 5 mm circumscribed round mass seen superiorly on the MLO view, 15 cm from the nipple. With tomosynthesis, this localizes to the lateral breast. While this may represent an intramammary lymph node, additional imaging evaluation is warranted for confirmation. No suspicious calcifications or areas of architectural distortion are seen.IMPRESSION:Right breast focal asymmetry, which needs additional imaging with diagnostic mammogram and targeted ultrasound.Bilateral circumscribed breast masses, which need additional imaging beginning with targeted bilateral breast ultrasound and additional diagnostic mammogram views if indicated following ultrasound.BI-RADS - 0 - Incomplete Assessment - Need additional imaging evaluation.Recommendation: Additional diagnostic imaging as above. The patient will be contacted by the department to arrange for additional imaging.This document has been electronically signed by Jo Ann Son MD on 06/13/2019 4:24 PM Name Value Range Interpretation Code Description Data Debbi rce(s) Supporting Document(s) Procedure Vital Signs ID Date Data Source UNK Name Value Range Interpretation Code Description Data Source(s) Diastolic blood pressure 66 mm[Hg] 66 mm[Hg] e[facility] ([facility]) Systolic blood pressure 140 mm[Hg] 140 mm[Hg] e CW1 ([facility]) Body temperature 97.5 [degF] 97.5 [degF] eCW1 ( [facility]) Respiratory rate 20 /min 20 /min W1 ([facility]) Heart rate 115 /min 115 /min W1 ([facility]) Body mass index (BMI) [Ratio] 28.57 kg/m2 28.57 kg/m2 W1 ([facility]) Body height 66 [in_i] 66 [in_i] eCW1 ([facility]) Body weight 177 [lb_av] 177 [lb_av] eCW1 ([facility]) ID Date Data Source [id number] 06/13/2019 04:26:22 PM [facility] Name Value Range Interpretation Code Description Data Source(s) WEIGHT RECORDED 170 lb 170 lb [facility] Body height Measured 66 in 66 in [facility] Patient Treatment Plan of Care Planned Activity Planned Date Details Description Data Source (s) Alprazolam 0.25 MG Oral Tablet 07/02/2019 12:00:00 AM [facility] eCW1 [facility])
[2020-08-07] MEDS ORDERED: MORPHINE 4 MG/ML 1ML VIAL/SYRINGE (J2270) IV ONE (14:45)
[2020-08-07] MEDS ORDERED: NS 1,000 ML IV SCH (14:46)
[2020-08-07 15:07] LABS: BASO # 0.1 10^3/uL (0.0-0.2); BASO % 0.5 % (0.0-1.0); EOS # 0.2 10^3/uL (0.0-0.5); EOS % 1.4 % (0.0-3.0); HEMATOCRIT 39.9 % (36.0-47.0); HEMOGLOBIN 13.3 g/dl (12.0-15.5); LYMPH # 1.7 10^3/uL (1.5-5.0); LYMPH % 12.8 % (24.0-44.0); MEAN CORPUSCULAR HEMOGLOBIN 31.7 pg (27.0-33.0); MEAN CORPUSCULAR HGB CONC 33.3 g/dl (32.0-36.5); MEAN CORPUSCULAR VOLUME 95.2 fl (80.0-96.0); MONO # 0.6 10^3/uL (0.0-0.8); MONO % 4.5 % (2.0-8.0); NEUTROPHILS # 10.6 10^3/uL (1.5-8.5); NEUTROPHILS % 80.4 % (36.0-66.0); PLATELET COUNT, AUTOMATED 246 10^3/uL (150-450); RED BLOOD COUNT 4.19 10^6/uL (4.00-5.40); WHITE BLOOD COUNT 13.1 10^3/uL (4.0-10.0)
--- NOTE | 2020-08-07 15:09 | REP ---
INDICATION: fall. COMPARISON: 07/21/2011. TECHNIQUE: SINGLE PORTABLE AP VIEW OF THE CHEST WAS PERFORMED. FINDINGS: THERE IS NO ACUTE INFILTRATE OR PULMONARY EDEMA. LUNGS ARE CLEAR. HEART IS NOT SIGNIFICANTLY ENLARGED. MEDIASTINAL SILHOUETTE IS UNREMARKABLE. THE VISUALIZED OSSEOUS STRUCTURES ARE INTACT. IMPRESSION: NO ACUTE PULMONARY DISEASE. <Electronically signed by Torres Vela > 08/07/20 [id number]
[2020-08-07 15:17] LABS: INR 0.98; PROTHROMBIN TIME 13.2 SECONDS (12.5-14.3)
[2020-08-07 15:18] LABS: PARTIAL THROMBOPLASTIN TIME 29.6 SECONDS (24.2-38.5)
[2020-08-07] MEDS ORDERED: ACET500T15 PO (15:19)
[2020-08-07] MEDS ORDERED: FISH1000 PO (15:19)
[2020-08-07] MEDS ORDERED: D31000TA2 PO (15:19)
[2020-08-07] MEDS ORDERED: ZINC1TAB2 PO (15:19)
[2020-08-07] MEDS ORDERED: VITA-158 PO (15:19)
[2020-08-07 15:37] LABS: ALBUMIN 3.8 GM/DL (3.2-5.2); ALT/SGPT 20 U/L (12-78); BILIRUBIN,DIRECT < 0.1 MG/DL (0.0-0.2); BILIRUBIN,TOTAL 0.5 MG/DL (0.2-1.0); BLOOD UREA NITROGEN 20 MG/DL (7-18); CARBON DIOXIDE LEVEL 28 MEQ/L (21-32); CHLORIDE LEVEL 105 MEQ/L (98-107); CREATININE FOR GFR 0.69 MG/DL (0.55-1.30); FREE T4 1.01 NG/DL (0.76-1.46); GLOMERULAR FILTRATION RATE > 60.0 (>32); GLUCOSE, FASTING 78 MG/DL (70-100); MAGNESIUM LEVEL 1.8 MG/DL (1.8-2.4); POTASSIUM SERUM 3.8 MEQ/L (3.5-5.1); SODIUM LEVEL 141 MEQ/L (136-145); TOTAL PROTEIN 6.9 GM/DL (6.4-8.2)
[2020-08-07] MEDS ORDERED: REST0.05 OU (15:38)
--- OUTSIDE RECORDS SUMMARY | 2020-08-07 15:40 | CCD ---
Author Author [facility] Organization [facility] Address Unknown Phone Unavailable Care Team Providers Care Canvas Marker Name Role Phone DINA (CONNER), N MARY [...] DINA (CONNER), N MARY RPA-C Unavailable Unavailable DNIA (CONNER), N MARY RPA-C Unavailable Unavailable DINA [...] is protected by Article 27-F of the [facility] Public Health law. If you continue you may have access to information: Regarding HIV / AIDS; Provided by facilities licensed or operated by the [facility] Office of Mental Health; or Provided by the [facility] Office for People With Developmental Disabilities. If such information is present, then the following [facility] mandated warning applies: This information has [...] law may result in a fine or fdc sentence or both. A general authorization for the release of medical or other information is NOT sufficient authorization for further disc losure. Family History Family Member Name Family Member Gender Family Member Status Date o f Status Description Data Source(s) Unknown Unknown Problem [facility] Encounters Encounter Providers Location Date Indications Data Source(s ) Outpatient [address] [facility] [address] [address] 06/23/2020 12:00:00 AM EST eCW1 ([facility]) [facility] [place] [address] [facility] [address] [address] 07/12/2019 12:00:00 AM EST eCW1 ([facility]) [facility] [place] [address] [facility] Y [address] 07/02/2019 12:00:00 AM EST eCW1 ([facility]) [place] [id number] [facility] [address] [place] [address] 06/17/2019 12:00:00 AM EST eCW1 ([facility]) Outpatient Referrer: MARY BrownCONNER) RPA-C 05/30 12:00:00 AM EST Encounter for other screening for malignant neoplasm of breast [facility] Encounter for other screening for malign [...] 12:00:00 AM EST suspension 0 INJECT BY [facility] (FIRST DOSE) INJECT BY [facility] (FIRST DOSE) SOLD: 07/12/2020 [facility] Diclofenac [...] 1.0 {tablet} active Alprazolam 0.25 MG eCW1 ([facility]) Alprazolam 0.25 MG Oral Tablet Alprazolam 0.25 MG 07/02/2019 12:00: 00 AM EST active 1 tablet eCW1 ([facility]) 75 mg 06/10/2019 12:00:00 AM EST tablet,delayed [...] type / Coverage type Policy ID Covered alliance party ID Covered alliance party's relationship to ceja Policy Ceja Plan Information MEDICARE BLUE PPO 306 [id number] SP [id number] MEDICARE BLUE PPO 306 [id number] SP [id number] EXCELLUS MEDICARE BLUE PPO G [id number] Self [id number] ANSI-Medicare Part B [id number] ANSI-Medicare Part B [id number] ANSI-Medicare Part B [id number] MEDICARE BLUE PPO 306 [id number] SP [id number] ANSI-Medicare Part B [id number] [place] of [place] Other 0 Self 0 [place] Other 0 Self 0 [place] Other 0 Self 0 [place] Other 0 Self 0 BCBS of [facility] Heaters Other 0 Self 0 BS Medicare Blue Ppo/Hmo Commercial Self BLUE CROSS BLUE SHIELD-CLINIC [id number] 18 [id number] BLUE CROSS BLUE SHIELD-O/P [id number] 18 [id number] [facility] HEALTH CARE OPTIONS-O/P [id number] 18 [id number] BLUE CROSS BLUE SHIELD-O/P [id number] 18 [id number] BLUE CROSS BLUE SHIELD-O/P [id number] 18 [id number] Problems, Conditions, and Diagnoses Code Display Name Description Problem Type Effective Dates Data Source(s) R92.8 [id number] Abnormal mammogram of both breasts [facility] 06/17/2019 12:00:00 AM EST eCW1 ([facility]) R92.8 [id number] Abnormal mammogram of both breasts Proble m 06/17/2019 12:00:00 AM EST eCW1 ([facility]) Results ID Date Data Source TSH 06/23/2020 12:00:00 AM EST eCW1 ([facility]) Name Value Range Interpretation Code Description Data Debbi rce(s) Supporting Document(s) 2.580 0.358-3.740 THYROID STIMULATING HORM ONE eCW1 ([facility]) ID Date Data Source LIPID PANEL (CARDIAC RISK) 06/23/2020 12:00:00 AM EST eCW1 ( [facility]) Name Value Range Interpretation Code Description Data Debbi rce(s) Supporting Document(s) 211 NON-HDL-C eCW1 ([facility]) Triglyceride [Mass/volume] in Serum or Plasma by calculation 238 <150 TRIGLYCERIDES LEVEL eCW1 ([facility]) Cholesterol in HDL [Moles/volume] in Serum or Plasma 49 >40 HDL CHOLESTEROL eCW1 ([facility]) Cholesterol [Moles/volume] in Serum or Plasma 260 <200 CHOLESTEROL LEVEL eCW1 ([facility]) Cholesterol in LDL [Mass/volume] in Serum or Plasma by calculation 163 <100 LDL CHOLESTEROL eCW1 ([facility]) 5.306 <5 CHOLESTEROL RISK RATIO eCW1 ([facility]) ID Date Data Source Comprehensive Metabolic Profile (CMP) 06/23/2020 12:00:00 AM EST eCW1 ([facility]) Name Value Range Interpretation Code Description Data Debbi rce(s) Supporting Document(s) 76 70-100 GLUCOSE, FASTING eCW1 ([facility]) 140 136-145 SODIUM LEVEL eCW1 ([facility]) 19 7-18 BLOOD UREA NITROGEN eCW1 ([facility]) 0.73 0.55-1.30 CREATININE FOR GFR eCW1 ([facility]) > 60.0 >32 GLOMERULAR FILTRATION RATE eCW 1 ([facility]) 30 21-32 CARBON DIOXIDE LEVEL eCW1 ([facility]) 10.1 8.8-10.2 CALCIUM LEVEL eCW1 ([facility]) 105 98-107 CHLORIDE LEVEL eCW1 ([facility]) 4.9 3.5-5.1 POTASSIUM SERUM eCW1 ([facility]) 9 7-37 AST/SGOT eCW1 ([facility]) 77 45-117 ALKALINE PHOSPHATASE eCW1 ([facility]) 6.9 6.4-8.2 TOTAL PROTEIN eCW1 ([facility]) 18 12-78 ALT/SGPT eCW1 ([facility]) 0.5 0.2-1.0 BILIRUBIN,TOTAL eCW1 ([facility]) 3.6 3.2-5.2 ALBUMIN eCW1 ([facility]) 1.1 1.2-2.2 ALBUMIN/GLOBULIN RATIO eCW1 ([facility]) ID Date Data Source CBC with Differential 06/23/2020 12:00:00 AM EST eCW1 ([facility]) Name Value Range Interpretation Code Description Data Debbi rce(s) Supporting Document(s) 7.4 4.0-10.0 WHITE BLOOD COUNT eCW1 ([facility]) 4.25 4.00-5.40 RED BLOOD COUNT eCW1 ([facility]) 31.3 27.0-33.0 MEAN CORPUSCULAR HEMOGLOB IN eCW1 ([facility]) 41.3 36.0-47.0 HEMATOCRIT eCW1 ([facility]) 13.3 12.0-15.5 HEMOGLOBIN eCW1 ([facility]) 97.2 80.0-96.0 MEAN CORPUSCULAR VOLUME e CW1 ([facility]) 185 150-450 PLATELET COUNT, AUTOMATED eCW1 ([facility]) 12.1 11.5-14.5 RED CELL DISTRIBUTION WID TH eCW1 ([facility]) 32.2 32.0-36.5 MEAN CORPUSCULAR HGB CONC eCW1 ([facility]) 49.2 36.0-66.0 NEUTROPHILS % eCW1 ([facility]) 3.6 1.5-8.5 NEUTROPHILS # eCW1 ([facility]) 1.2 0.0-1.0 BASO % eCW1 ([facility]) 7.7 0.0-5.0 MONO % eCW1 ([facility]) 5.3 0.0-3.0 EOS % eCW1 ([facility]) 36.3 24.0-44.0 LYMPH % eCW1 ([facility]) 0.4 0.0-0.5 EOS # eCW1 ([facility]) 2.7 1.5-5.0 LYMPH # eCW1 ([facility]) 0.6 0.0-0.8 MONO # eCW1 ([facility]) 0.1 0.0-0.2 BASO # eCW1 ([facility]) ID Date Data Source [id number] 06/13/2019 04:26:22 PM [facility] MAMMO DIGITAL SCREENING BILATERAL [id number] INAL RESULTInterpreted by:Jo Ann Son MDATRIUM HEALTH FLOYD CHEROKEE MEDICAL CENTERATERAL DIGITAL SCREENING MAMMOGRAMINDICATION: Screening mammogram. Comparison: The [...] blood pressure 66 mm[Hg] 66 mm[Hg] eCW1 ([facility]) Systolic blood pressure 140 mm[Hg] 140 mm[Hg] e CW1 ([facility]) Body temperature 97.5 [degF] 97.5 [degF] eCW1 ( [facility]) Respiratory rate 20 /min 20 /min eCW1 ([facility]) Heart rate 115 /min 115 /min eCW1 ([facility]) Body mass index (BMI) [Ratio] 28.57 kg/m2 28.57 kg/m2 eCW1 ([facility]) Body height 66 [in_i] 66 [in_i] eCW1 ([facility]) Body weight 177 [lb_av] 177 [lb_av] eCW1 ([facility]) ID Date Data Source [id number] 06/13/2019 04:26:22 PM [facility] Name Value Range Interpretation Code Description Data Source(s) WEIGHT RECORDED 170 lb 170 lb [facility] Body height Measured 66 in 66 in [facility] Patient Treatment Plan of Care Planned Activity Planned Date Details Description Data Source (s) Alprazolam 0.25 MG Oral Tablet 07/02/2019 12:00:00 AM EST eCW1 ([facility])
--- NOTE | 2020-08-07 16:41 | HPEPDOC ---
[facility] Medical History & Physical Date of Admission Aug 07, 2020 Date of Service: Aug 07, 2020 History and Physical Chief complaint: Who presented to the ER with L hip pain History of present illness: Patient is an 85-year-old female with no significant past medical his tory who was presented to the emergency room with complaints of left hip pain. Patient reported that today she was grocery shopping at around 11:15 AM and had stumbled on her grocery cart and landed on her left side. She had reported some left hip pain at that time. She was helped up by staff. She checked out and got assistance to her car loaded her groceries and drove to [facility] pharmacy in [facility] to receive her second COVID19 vaccination. Patient had saw her primary care provider at [facility] imaging was completed there that had revealed evidence of left hip fracture. Patient was se nt to the emergency room for further evaluation. Currently patient denies any nausea, vomiting, chest pain, shortness breath, palpitations, cough, abdominal pain, constipation, diarrhea, or urinary d iscomfort. Denies any fevers or chills. Reports her appetite is fairly normal and has not experienced any changes in her weight. Patient reports that she has never had a heart attack or stroke. Has not had a stress test, however, is able to walk up a flight of stairs without experiencing any symptoms. Past Medical History: No significant past medical history Past Surgical History: Bilateral cataract surgery Right corneal transplant Allergies: See below Medications: See below Family History: - Mother without any significant past medical history, and father with a history of stroke Social History: - Denies the use of alcohol or illicit drugs; patient reports that she quit smoking about 30 years ago but was a smoker for 25 years at 1 PPD - Denies recent travel or sick contacts - Lives with daughter Review of Systems: 10 point review of systems complete, all negative otherwise stated in HPI Physical exam: - Vitals: BP [196/106], HR [89], RR [18], Sat [95%RA], Temp [97.6F] - General: Lying in bed, Speaking in full sentences, AAOx3 - HEENT: NC, AT, PERRLA - CVS: RRR, +S1S2, - Murmurs / rubs / gallops - Lungs: Fair air entry bilaterally, No appreciable wheezing / rales / rhonchi - Abdomen: Soft, Non-distended, Non-tender - Extremities: No lower extremity edema, No calf tenderness, Left leg externally rotated and shorter - Neuro: No focal motor or sensory deficit - Skin: No visible rashes Labs: See below Imaging: CXR 08/07: No acute pulmonary disease. Left hip 08/07: Left femoral neck fracture with varus position and slight comminution. Left femur 08/07: Left femoral neck fracture with slight impaction and varus deformity. EKG: EKG 08/07: Reviewed without any ischemic changes noted. Similar to priors on record Assessment and Plan: Left hip pain - likely 2/2 left femoral neck fracture with varus position and slight comminution - likely 2/2 mechanical fall - Patient presented to the emergency room with left pain - Physical with externally rotated and shorter left hip - She reports no significant pain while she is at rest; ports 10 out of 10 pain with movement - Imaging noted above - Will start morphine for pain control - Patient will remain nothing by mouth - Patient has been medically optimized for a relatively low-risk procedure at low risk - Discussed and consulted Dr. Carranza will evaluate patient today and likely take OR No significant past medical history DVT prophylaxis - Will hold for now pending surgery Vital Signs Vital Signs Date Time Temp Pulse Resp B/P (MAP) Pulse Ox O2 Delivery O2 Flow Rate FiO2 08/07/20 16:03 16 08/07/20 14:40 97.6 106 196/106 (136) 95 Room Air Laboratory Data Labs 24H Laboratory Tests 2 08/07/20 14:52: Immature Granulocyte % (Auto) 0.4, Neutrophils (%) (Auto) 80.4H, Lymphocytes (%) (Auto) 12.8L, Monocytes (%) (Auto) 4.5, Eosinophils (%) (Auto) 1.4, Basophils (%) (Auto) 0.5, Neutrophils # (Auto) 10.6H, Lymphocytes # (Auto) 1.7, Monocytes # (Auto) 0.6, Eosinophils # (Auto) 0.2, Basophils # (Auto) 0.1, Nucleated Red Blood Cells % (auto) 0.0, Prothrombin Time 13.2, Prothromb Time International Ratio 0.98, Activated Partial Thromboplast Time 29.6, Anion Gap 8, Glomerular Filtration Rate > 60.0, Calcium Level 10.0, Magnesium Level 1.8, Total Bilirubin 0.5, Direct Bilirubin < 0.1, Aspartate Amino Transf (AST/SGOT) 13, Alanine Aminotransferase (ALT/SGPT) 20, Alkaline Phosphatase 77, Total Protein 6.9, Albumin 3.8, Albumin/Globulin Ratio 1.2, Thyroid Stimulating Hormone (TSH) 1.040, Free Thyroxine 1.01 CBC/BMP Laboratory Tests 08/07/20 14:52 Home Medications Scheduled Acetaminophen (Acetaminophen) 500 Mg Tablet, 1,000 MG PO DAILY Ascorbic Acid (Vitamin C) 500 Mg Tablet, 500 MG PO DAILY Cholecalciferol (Vitamin D3) (Vitamin D3) 1,000 Unit Tablet, 1,000 UNITS PO DAILY Diclofenac Sodium (Diclofenac Sodium) 75 Mg Tab, 75 MG PO DAILY Renner-3 Fatty Acids/Fish Oil (Fish Oil 1,000 mg Capsule) 1 Each Capsule, 1,000 MG PO DAILY Zinc (Zinc) 50 Mg Tablet, 50 MG PO DAILY Scheduled PRN Cyclosporine (Restasis) 0.05% Droperette, 1 DROP OU BID PRN for DRY EYES PATIENT STATES SHE ONLY USES PRN Allergies Coded Allergies: No Known Allergies (Unverified , 08/07/20) NARCISA HAQ MD Aug 07, 2020 16:41
[2020-08-07] MEDS ORDERED: ACETAMINOPHEN TAB 650MG DOSE (2X325MG) PO PRN (16:45)
[2020-08-07] MEDS ORDERED: MOM 30ML SUSPENSION UDC PO PRN (16:45)
[2020-08-07] MEDS ORDERED: MORPHINE 2 MG/ML 1ML VIAL (J2270) IV PRN ×2 (16:45→21:45)
--- OUTSIDE RECORDS SUMMARY | 2020-08-07 17:27 | CCD ---
Author Author [facility] Organization [facility] Address Unknown Phone Unavailable Care Team Providers Care Still Runner Name Role Phone DINA (CONNER), N MARY [...] is protected by Article 27-F of the [facility] Public Health law. If you continue you may have access to information: Regarding HIV / AIDS; Provided by facilities licensed or operated by the [facility] Office of Mental Health; or Provided by the [facility] Office for People With Developmental Disabilities. If such information is present, then the following [facility] mandated warning applies: This information has been [...] law may result in a fine or correction sentence or both. A general authorization for the release of medical or other information is NOT sufficient authorization for further disc losure. Family History Family Member Name Family Member Gender Family Member Status Date o f Status Description Data Source(s) Unknown Unknown Problem [facility] Encounters Encounter Providers Location Date Indications Data Source(s ) Outpatient [address] [facility] [place] [address] 06/23/2020 12:00:00 AM EST eCW1 ([facility]) [facility] [place] [address] [facility] [address] [address] 07/12/2019 12:00:00 AM EST eCW1 ([facility]) [facility] [place] [address] [facility] [address] [address] 07/02/2019 12:00:00 AM EST eCW1 ([facility]) [place] [id number] [facility] [address] [address] 06/17/2019 12:00:00 AM EST eCW1 ([facility]) Outpatient Referrer: MARY BrownCONNER) RPA-C 05/30 12:00:00 AM EST Encounter for other screening for malignant neoplasm of breast [facility] Encounter for other screening for malign ant [...] 12:00:00 AM EST suspension 0 INJECT BY [facility] (FIRST DOSE) INJECT BY [facility] (FIRST DOSE) SOLD: 07/12/2020 [facility] Diclofenac [...] 1.0 {tablet} active Alprazolam 0.25 MG eCW1 ([facility]) Alprazolam 0.25 MG Oral Tablet Alprazolam 0.25 MG 07/02/2019 12:00: 00 AM EST active 1 tablet eCW1 ([facility]) 75 mg 06/10/2019 12:00:00 AM EST tablet,delayed [...] Covered republican ID Covered republican's relationship to ceja Policy Ceja Plan Information MEDICARE BLUE PPO 306 [id number] SP [id number] MEDICARE BLUE PPO 306 [id number] SP [id number] EXCELLUS MEDICARE BLUE PPO G [id number] Self [id number] ANSI-Medicare Part B [id number] ANSI-Medicare Part B [id number] ANSI-Medicare Part B [id number] MEDICARE BLUE PPO 306 [id number] SP [id number] ANSI-Medicare Part B [id number] BC[place] of [place] Other 0 Self 0 [place] Other 0 Self 0 [place] Other 0 Self 0 [place] Other 0 Self 0 BCBS of [facility] [place] Other 0 Self 0 BS Medicare Blue Ppo/Hmo Commercial Self BLUE CROSS BLUE SHIELD-CLINIC [id number] 18 [id number] BLUE CROSS BLUE SHIELD-O/P [id number] 18 [id number] [facility]ARE OPTIONS-O/P [id number] 18 [id number] BLUE CROSS BLUE SHIELD-O/P [id number] 18 [id number] BLUE CROSS BLUE SHIELD-O/P [id number] 18 [id number] Problems, Conditions, and Diagnoses Code Display Name Description Problem Type Effective Dates Data Source(s) R92.8 [id number] Abnormal mammogram of both breasts [facility] 06/17/2019 12:00:00 AM EST eCW1 ([facility]) R92.8 [id number] Abnormal mammogram of both breasts Proble m 06/17/2019 12:00:00 AM EST eCW1 ([facility]) Results ID Date Data Source TSH 06/23/2020 12:00:00 AM EST eCW1 ([facility]) Name Value Range Interpretation Code Description Data Debbi rce(s) Supporting Document(s) 2.580 0.358-3.740 THYROID STIMULATING HORM ONE eCW1 ([facility]) ID Date Data Source LIPID PANEL (CARDIAC RISK) 06/23/2020 12:00:00 AM EST eCW1 ( [facility]) Name Value Range Interpretation Code Description Data Debbi rce(s) Supporting Document(s) 211 NON-HDL-C eCW1 ([facility]) Triglyceride [Mass/volume] in Serum or Plasma by calculation 238 <150 TRIGLYCERIDES LEVEL eCW1 ([facility]) Cholesterol in HDL [Moles/volume] in Serum or Plasma 49 >40 HDL CHOLESTEROL eCW1 ([facility]) Cholesterol [Moles/volume] in Serum or Plasma 260 <200 CHOLESTEROL LEVEL eCW1 ([facility]) Cholesterol in LDL [Mass/volume] in Serum or Plasma by calculation 163 <100 LDL CHOLESTEROL eCW1 ([facility]) 5.306 <5 CHOLESTEROL RISK RATIO eCW1 ([facility]) ID Date Data Source Comprehensive Metabolic Profile (CMP) 06/23/2020 12:00:00 AM EST eCW1 ([facility]) Name Value Range Interpretation Code Description Data Debbi rce(s) Supporting Document(s) 76 70-100 GLUCOSE, FASTING eCW1 ([facility]) 140 136-145 SODIUM LEVEL eCW1 ([facility]) 19 7-18 BLOOD UREA NITROGEN eCW1 ([facility]) 0.73 0.55-1.30 CREATININE FOR GFR eCW1 ([facility]) > 60.0 >32 GLOMERULAR FILTRATION RATE eCW 1 ([facility]) 30 21-32 CARBON DIOXIDE LEVEL eCW1 ([facility]) 10.1 8.8-10.2 CALCIUM LEVEL eCW1 ([facility]) 105 98-107 CHLORIDE LEVEL eCW1 ([facility]) 4.9 3.5-5.1 POTASSIUM SERUM eCW1 ([facility]) 9 7-37 AST/SGOT eCW1 ([facility]) 77 45-117 ALKALINE PHOSPHATASE eCW1 ([facility]) 6.9 6.4-8.2 TOTAL PROTEIN eCW1 ([facility]) 18 12-78 ALT/SGPT eCW1 ([facility]) 0.5 0.2-1.0 BILIRUBIN,TOTAL eCW1 ([facility]) 3.6 3.2-5.2 ALBUMIN eCW1 ([facility]) 1.1 1.2-2.2 ALBUMIN/GLOBULIN RATIO eCW1 ([facility]) ID Date Data Source CBC with Differential 06/23/2020 12:00:00 AM EST eCW1 ([facility]) Name Value Range Interpretation Code Description Data Debbi rce(s) Supporting Document(s) 7.4 4.0-10.0 WHITE BLOOD COUNT eCW1 ([facility]) 4.25 4.00-5.40 RED BLOOD COUNT eCW1 ([facility]) 31.3 27.0-33.0 MEAN CORPUSCULAR HEMOGLOB IN eCW1 ([facility]) 41.3 36.0-47.0 HEMATOCRIT eCW1 ([facility]) 13.3 12.0-15.5 HEMOGLOBIN eCW1 ([facility]) 97.2 80.0-96.0 MEAN CORPUSCULAR VOLUME e CW1 ([facility]) 185 150-450 PLATELET COUNT, AUTOMATED eCW1 ([facility]) 12.1 11.5-14.5 RED CELL DISTRIBUTION WID TH eCW1 ([facility]) 32.2 32.0-36.5 MEAN CORPUSCULAR HGB CONC eCW1 ([facility]) 49.2 36.0-66.0 NEUTROPHILS % eCW1 ([facility]) 3.6 1.5-8.5 NEUTROPHILS # eCW1 ([facility]) 1.2 0.0-1.0 BASO % eCW1 ([facility]) 7.7 0.0-5.0 MONO % eCW1 ([facility]) 5.3 0.0-3.0 EOS % eCW1 ([facility]) 36.3 24.0-44.0 LYMPH % eCW1 ([facility]) 0.4 0.0-0.5 EOS # eCW1 ([facility]) 2.7 1.5-5.0 LYMPH # eCW1 ([facility]) 0.6 0.0-0.8 MONO # eCW1 ([facility]) 0.1 0.0-0.2 BASO # eCW1 ([facility]) ID Date Data Source [id number] 06/13/2019 04:26:22 PM [facility] MAMMO DIGITAL SCREENING BILATERAL [id number] INAL RESULTInterpreted by:Jo Ann Son MDW. D. PARTLOW DEVELOPMENTAL CENTERATERAL DIGITAL SCREENING MAMMOGRAMINDICATION: Screening mammogram. Comparison: [...] blood pressure 66 mm[Hg] 66 mm[Hg] eCW1 ([facility]) Systolic blood pressure 140 mm[Hg] 140 mm[Hg] e CW1 ([facility]) Body temperature 97.5 [degF] 97.5 [degF] eCW1 ( [facility]) Respiratory rate 20 /min 20 /min eCW1 ([facility]) Heart rate 115 /min 115 /min eCW1 ([facility]) Body mass index (BMI) [Ratio] 28.57 kg/m2 28.57 kg/m2 eCW1 ([facility]) Body height 66 [in_i] 66 [in_i] eCW1 ([facility]) Body weight 177 [lb_av] 177 [lb_av] eCW1 ([facility]) ID Date Data Source [id number] 06/13/2019 04:26:22 PM [facility] Name Value Range Interpretation Code Description Data Source(s) WEIGHT RECORDED 170 lb 170 lb [facility] Body height Measured 66 in 66 in [facility] Patient Treatment Plan of Care Planned Activity Planned Date Details Description Data Source (s) Alprazolam 0.25 MG Oral Tablet 07/02/2019 12:00:00 AM EST eCW1 ([facility])
[2020-08-07 17:38] LABS: RSV AMPLIFICATION NEGATIVE (NEGATIVE)
[2020-08-07] MEDS ORDERED: fentaNYL 100 MCG/2 ML INJECTION (J3010) As Ordered ONE (18:56)
[2020-08-07] MEDS ORDERED: LIDOCAINE 2% 100MG/5ML SDV (FOR ANES.) As Ordered ONE (18:56)
[2020-08-07] MEDS ORDERED: MIDAZOLAM INJ 2MG/2ML VIAL (J2250 PER 1MG) As Ordered ONE (18:56)
[2020-08-07] MEDS ORDERED: propofoL 200 MG/20 ML VIAL As Ordered ONE ×2 (18:56→20:23)
[2020-08-07] MEDS ORDERED: KETAMINE HCL 200 MG/20 ML VIAL As Ordered ONE (19:35)
[2020-08-07] MEDS ORDERED: TRANEXAMIC ACID 100 MG/ML 10ML VIAL As Ordered ONE (19:41)
[2020-08-07] MEDS ORDERED: ceFAZolin 2 GM/D5W 50 ML IV BAG (J0690 PER 500MG) As Ordered ONE (19:41)
[2020-08-07] MEDS ORDERED: ONDANSETRON 4MG/2ML VIAL As Ordered ONE (20:10)
--- NOTE | 2020-08-07 21:29 | ECGEPIP ---
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
[2020-08-07] MEDS ORDERED: LR 1,000 ML IV SCH ×2 (21:45)
[2020-08-07] MEDS ORDERED: oxyCODONE 5MG TAB PO PRN (21:45)
[2020-08-07] MEDS ORDERED: ONDANSETRON 4MG/2ML VIAL IV PRN (21:45)
[2020-08-07] MEDS ORDERED: fentaNYL 100 MCG/2 ML INJECTION (J3010) IV PRN (21:45)
--- NOTE | 2020-08-07 22:18 | REPVR ---
PROCEDURE INFORMATION: Exam: XR Left Hip with Pelvis when Performed Exam date and time: 08/07/2020 9:39 PM Age: 85 years old Clinical indication: Device placement; Other: S/P hip FX; Prior surgery; Surgery date: Post-operative (0-2 days); Additional info: S/P left hip FX, ap only TECHNIQUE: Imaging protocol: XR Left hip with pelvis when performed. Views: 1 view. COMPARISON: DX HIP COMPLETE (AP/LAT) 08/07/2020 12:44 PM FINDINGS: Bones/joints: Left hip hemiprosthesis in position since a study done earlier in the day. The femoral stem is well seated. Soft tissues: Unremarkable. Gastrointestinal tract: Gas is noted in the soft tissues lateral to the hip and proximal femur. IMPRESSION: Interval placement of left hip hemiprosthesis in satisfactory position since a study done earlier in the day. Electronically signed by: Jay Mckeon On 08/07/2020 22:17:42 PM
[2020-08-07 22:20] VITALS: BP 132/83
[2020-08-07] MEDS: DOCUSATE SODIUM 100MG CAPSULE PO SCH (22:32)
[2020-08-07] MEDS: ACETAMINOPHEN TAB 650MG DOSE (2X325MG) PO PRN (22:32)
[2020-08-07 22:50] VITALS: BP 140/68
[2020-08-07] MEDS: PERCOCET 5MG/325MG TAB PO PRN (23:35)
[2020-08-07 23:50] VITALS: BP 141/69
[2020-08-08 00:50] VITALS: BP 137/69
[2020-08-08 01:50] VITALS: BP 123/64
[2020-08-08] MEDS: ceFAZolin SOD 2 GM in IV 1 EA IV SCH ×2 (04:16→12:19)
[2020-08-08 06:00] VITALS: BP 122/63
[2020-08-08 07:18] LABS: BASO # 0.1 10^3/uL (0.0-0.2); BASO % 0.9 % (0.0-1.0); EOS # 0.4 10^3/uL (0.0-0.5); EOS % 5.2 % (0.0-3.0); HEMATOCRIT 33.9 % (36.0-47.0); LYMPH # 1.3 10^3/uL (1.5-5.0); LYMPH % 18.3 % (24.0-44.0); MEAN CORPUSCULAR HEMOGLOBIN 31.9 pg (27.0-33.0); MEAN CORPUSCULAR HGB CONC 32.7 g/dl (32.0-36.5); MEAN CORPUSCULAR VOLUME 97.4 fl (80.0-96.0); MONO # 0.3 10^3/uL (0.0-0.8); MONO % 4.8 % (2.0-8.0); NEUTROPHILS # 4.9 10^3/uL (1.5-8.5); NEUTROPHILS % 70.5 % (36.0-66.0); PLATELET COUNT, AUTOMATED 193 10^3/uL (150-450); RED BLOOD COUNT 3.48 10^6/uL (4.00-5.40); WHITE BLOOD COUNT 6.9 10^3/uL (4.0-10.0)
[2020-08-08 07:37] LABS: HEMOGLOBIN 11.1 g/dl (12.0-15.5)
[2020-08-08 07:41] LABS: BLOOD UREA NITROGEN 14 MG/DL (7-18); CALCIUM LEVEL 8.8 MG/DL (8.8-10.2); CARBON DIOXIDE LEVEL 27 MEQ/L (21-32); CHLORIDE LEVEL 107 MEQ/L (98-107); GLOMERULAR FILTRATION RATE > 60.0 (>32); GLUCOSE, FASTING 95 MG/DL (70-100); MAGNESIUM LEVEL 1.6 MG/DL (1.8-2.4); POTASSIUM SERUM 4.1 MEQ/L (3.5-5.1); SODIUM LEVEL 140 MEQ/L (136-145)
[2020-08-08] MEDS: DOCUSATE SODIUM 100MG CAPSULE PO SCH ×2 (09:26→20:52)
[2020-08-08] MEDS: PERCOCET 5MG/325MG TAB PO PRN ×2 (09:26→16:14)
[2020-08-08 10:00] VITALS: BP 136/59
--- NOTE | 2020-08-08 10:06 | IPNPDOC ---
Text Note Date of Service The patient was seen on 08/08/20. NOTE Subjective: Patient is an 85-year-old female with no significant past medical history who was presented to the ER with complaints of left hip pain. Patient reported that she was grocery shopping at around 11:15 AM on 08/07 and had stumbled on her grocery cart and landed on her left side. She had reported some left hip pain at that time. She was helped up by staff. She checked out and got assistance to her car, loaded her groceries and drove to [employer] in [place] to receive her second COVID19 vaccination. Patient had saw her primary care provider at [facility], and imaging was completed there that had revealed evidence of left hip fracture. Patient was sent to the emergency room for further evaluation. Patient was admitted to the hospital service for further evaluation and treatment. Orthopedic surgery was called on consultation. Patient was seen and examined at the bedside. Patient is seen sitting up in bed, appears to be comfortable, was reported that she has had an uneventful evening denies any nausea, vomiting, chest pain, short of breath, abdominal pain, diarrhea, or urinary discomfort. She will be working with physical therapy today. Objective: Vitals (See below) General: Lying in bed, appears comfortable, AAOx3 HEENT: NC, AT CVS: +S1S2 Lungs: Fair air entry b/l, -w/r/r Abdomen: Soft, ND, NT Extremities: - Edema, - Calf tenderness, L hip with dressing in place Imaging: Left hip 08/07: Left femoral neck fracture with varus position and slight comminution. Left femur 08/07: Left femoral neck fracture with slight impaction and varus deformity. CXR 08/07: No acute pulmonary disease. Left hip 08/07: Interval placement of left hip hemiprosthesis in satisfactory position since a study done earlier in the day. Assessment and Plan: Left hip pain - likely 2/2 left femoral neck fracture with varus position and slight comminution - likely 2/2 mechanical fall - Presented to ER with left pain; found to have L hip fracture - Currently patient reports that her pain is well controlled at rest - Imaging noted above - s/p Correction on 08/[address] Carranza - c/w Pain control - c/w PT; awaiting clearance - Orthopedic surgery on consultation; Dr. Carranza DVT prophylaxis - c/w Xarelto; as per orthopedic surgery Disposition: - Anticipate discharge tomorrow VS,Sumanth, I+O VS, Sumanth, I+O Laboratory Tests 08/07/20 14:52 08/08/20 07:08 Vital Signs Date Time Temp Pulse Resp B/P (MAP) Pulse Ox O2 Delivery O2 Flow Rate FiO2 08/08/20 09:26 16 08/08/20 06:00 98.8 80 122/63 (82) 97 Nasal Cannula 2.0 I&O- Last 24 Hours up to 6 AM 08/08/20 06:00 Intake Total 3070 ml Output Total 100 ml Balance 2970 ml NARCISA HAQ MD Aug 08, 2020 10:06
--- NOTE | 2020-08-08 12:15 | CR ---
CONSULTATION DATE: 08/07/2020 CHIEF COMLAINT: Left femoral neck fracture. HISTORY OF PRESENT ILLNESS: This is an 85-year-old female who tripped on a shopping cart while in the [employer] in [place], [place]. This was at 11:15 yesterday. She has been nothing by mouth since 9:30 in the morning. No head injuries or loss of consciousness. She was able to walk and go get her second of two COVID vaccines today, but then she developed extreme hip pain and difficulty ambulating. Radiographs demonstrated femoral neck fracture and was sent here to [facility]. She has been cleared by the hospitalist, Dr. Engel. PAST MEDICAL HISTORY: None. MEDICATIONS: - Tylenol - vitamin C - vitamin D - diclofenac - omega 3 as needed - cyclosporin ALLERGIES: No known drug allergies. SURGICAL HISTORY: 1. Cataract surgery. 2. Right corneal transplant FAMILY HISTORY: Insignificant. SOCIAL HISTORY: Denies alcohol or illicit drugs. Quit smoking 30 years ago. Lives with her daughter. Does not use a cane or a walker; however, she does have some chronic sciatic symptoms which makes it difficult for her to walk on her toes, especially on the right side. PHYSICAL EXAMINATION: This is a well-appearing 85-year-old female. VITAL SIGNS: Stable. She has a shortened and externally rotated left lower extremity. Normal sensation and motor function of the foot. The foot is warm and well-perfused. Good tibialis posterior pulse. Normal sensation of the foot. No pain elsewhere in the lower extremity. IMAGING DATA: Radiographs of the left hip and pelvis demonstrates a displaced left femoral neck fracture. LABORATORY DATA: Reveals hemoglobin 13. Creatinine 3. INR 0.98. COVID negative. ASSESSMENT AND PLAN: This is an 85-year-old female who has a displaced left femoral neck fracture. This is recommended for surgical fixation. This is typically in the form of hemiarthroplasty. I discussed the pros and cons, risks and benefits of nonoperative versus surgical management of this problem. The surgical risks include, but are not limited to infection, pain, stiffness, bleeding, weakness to the limb, fracture, damage to surrounding structures, instability, worsening prosthesis wear, lobsterman worsening osteoarthritis, component disassociation, neurovascular injury, delayed mal- or nonunion, need for further surgery, anesthetic complications, blood clots, , and other risks. She wished to go ahead and signed the consent form for surgery, as well as possible need for blood products and I explained the pros and cons, risks and benefits of that to her as well and she wishes to proceed and signed the consent form for use of blood products. We will keep her fasting, nothing by mouth, and I have notified the operating theater. I have marked the left lower extremity and she had no further questions.
--- NOTE | 2020-08-08 12:22 | RO ---
OPERATIVE NOTE DATE OF OPERATION: 08/07/2020 PREOPERATIVE DIAGNOSIS: Left femoral neck fracture. POSTOPERATIVE DIAGNOSIS: Left femoral neck fracture. PLANNED PROCEDURE: Left hip cemented hemiarthroplasty. PROCEDURE PERFORMED: Left hip cemented hemiarthroplasty. SURGEON: Shawn Carranza MD BLENDER / COOK: ANESTHESIOLOGIST: Dr. Mallory ANESTHESIA: Spinal anesthetic. OPERATIVE PREAMBLE: This is an 85-year-old female who had a mechanical fall in the [employer]. She sustained a displaced femoral neck fracture. We discussed the pros, cons, risks, benefits with her of left hip cemented hemiarthroplasty. She wished to proceed. We marked the left lower extremity and proceeded to surgery. DESCRIPTION OF PROCEDURE: The patient was brought to the operating theater. She was administered spinal anesthetic. She was placed left lateral decubitus with the aid of the [place] hip positioner. All bony prominences were padded. An axillary roll was employed. All bony prominences were appropriately padded included in the [place] hip positioner. The limb was prepped and draped in the usual sterile fashion, allowing over three minutes for the chlorhexidine based prep solution to thoroughly dry prior to draping. A preoperative timeout was performed to confirm the site of the patient's surgery. Two grams of IV Ancef as well as 1 gm of IV TXA was given prior to the start of the incision. I began by making a standard lateral incision over the proximal aspect of the hip, carried dissection down through skin and subcutaneous tissue and achieved meticulous hemostasis. I incised the tensor fascia frank in line with the skin incision. I sharply excised the abductors from the greater trochanter. I made a T-shaped capsulotomy. I tagged each limb with #1 Vicryl suture. I made my neck cut approximately 1 cm above the level of the lesser trochanter. I delivered the head into the incision using the cork screw device. I used the lateralizing device as well as canal finders and sequentially broached up to a size 5. I trialed this size 5, -3 mm neck offset as well as size 48 mm head. This appeared to be stable with normal shuck test, no impingement and stable in flexion, internal rotation as well as extension, external rotation. The trial components were removed. The femur was prepared with pulse lavage. No remnants in the acetabulum. This was also cleaned with pulse lavage. The ligamentum teres was left in place. I mixed cement using third generation cement mixing techniques. I inserted a size 4 distal cement restrictor. Final components were chosen, size 5 DePuy Lamar stem with distal centralizer placed. Cement was then allowed to firm and then inserted using pressurization techniques into the femoral canal. The patient was stable throughout pressurization. The femoral components were then implanted into place in appropriate version and cement allowed to harden. I then used again pulse lavage to clean the trunion. Minus 3 mm neck-head taper was inserted with a size 48 mm head and impacted into the Dee taper after it was appropriately cleaned. This was stable and solid. The hip was reduced and again trialing performed and found to be adequate. I then closed the capsule using interrupted [id number] #1 Vicryl sutures. The abductors were repaired using transosseous bone tunnels as well as #2 FiberWire suture using a locking Javier-Tony type stitch. This repaired and solidly fixated. The tensor fascia frank was repaired with running #1 Stratafix suture. The subcutaneous tissue was closed with interrupted 2-0 Vicryl sutures in interrupted and running fashion and the skin was cleaned with wet-to-dry dressing followed by application of Prineo wound care type dressing with Dermabond over top. This was allowed to fully dry. The patient was taken out of the [place] hip positioner, transferred off the operating table and taken to the postanesthetic care unit in stable condition. All sponge count, needle counts, and instrument counts were correct. No complications. Estimated blood loss: 100 mL. The femoral head was sent in a typical fashion. Plan for the patient is to be weightbearing as tolerated. Ancef 2 gm IV x2 doses postoperatively for antibiotic prophylaxis per local hospital protocols. VTE prophylaxis with Xarelto 10 mg p.o. once daily starting postoperative day one for 35 days for VTE prophylaxis. The patient will be admitted under the hospitalist service. Followup in two weeks' time. She may shower on postop day two. ____(cut out) and leave the dressing on (cut out) as this is the definitive wound (cut out).
[2020-08-08 14:00] VITALS: BP 138/64
[2020-08-08] MEDS ORDERED: MAG SULF 1GM/100ML (MAG RUN) 1 GM in IV 1 EA IV ONE (14:00)
[2020-08-08] MEDS ORDERED: RIVAROXABAN 10 MG TAB (XARELTO) PO SCH (18:00)
[2020-08-08 22:00] VITALS: BP 138/63
[2020-08-09 06:15] VITALS: BP 136/66
[2020-08-09] MEDS: ACETAMINOPHEN TAB 650MG DOSE (2X325MG) PO PRN (06:22)
[2020-08-09 06:44] LABS: BASO # 0.1 10^3/uL (0.0-0.2); BASO % 0.7 % (0.0-1.0); EOS # 0.3 10^3/uL (0.0-0.5); EOS % 4.6 % (0.0-3.0); HEMATOCRIT 31.9 % (36.0-47.0); HEMOGLOBIN 10.4 g/dl (12.0-15.5); LYMPH # 1.4 10^3/uL (1.5-5.0); LYMPH % 20.4 % (24.0-44.0); MEAN CORPUSCULAR HEMOGLOBIN 31.5 pg (27.0-33.0); MEAN CORPUSCULAR HGB CONC 32.6 g/dl (32.0-36.5); MEAN CORPUSCULAR VOLUME 96.7 fl (80.0-96.0); MONO # 0.4 10^3/uL (0.0-0.8); MONO % 6.1 % (2.0-8.0); NEUTROPHILS # 4.6 10^3/uL (1.5-8.5); NEUTROPHILS % 67.8 % (36.0-66.0); PLATELET COUNT, AUTOMATED 173 10^3/uL (150-450); WHITE BLOOD COUNT 6.7 10^3/uL (4.0-10.0)
[2020-08-09 07:08] LABS: BLOOD UREA NITROGEN 8 MG/DL (7-18); CALCIUM LEVEL 8.6 MG/DL (8.8-10.2); CARBON DIOXIDE LEVEL 27 MEQ/L (21-32); CHLORIDE LEVEL 104 MEQ/L (98-107); CREATININE FOR GFR 0.52 MG/DL (0.55-1.30); GLOMERULAR FILTRATION RATE > 60.0 (>32); GLUCOSE, FASTING 81 MG/DL (70-100); MAGNESIUM LEVEL 1.9 MG/DL (1.8-2.4); SODIUM LEVEL 138 MEQ/L (136-145)
--- NOTE | 2020-08-09 08:22 | REP ---
INDICATION: Low grade temp / cough / R side crackles. COMPARISON: Comparison chest x-ray 07 August 2020. TECHNIQUE: Portable upright AP chest radiograph. FINDINGS: The the lungs are well inflated and free of infiltrate. Cardiomediastinal silhouette is unchanged. The aorta is tortuous. Oxygen delivery tubing is seen. Pulmonary vasculature is not increased. There is no evidence of pleural effusion or pulmonary edema.. IMPRESSION: No active disease. <Electronically signed by Maximus Marquis > 08/09/20 [id number]
[2020-08-09] MEDS: PERCOCET 5MG/325MG TAB PO PRN (09:16)
[2020-08-09] MEDS: DOCUSATE SODIUM 100MG CAPSULE PO SCH (09:16)
[2020-08-09] MEDS ORDERED: PERCOCET PO (09:34)
[2020-08-09] MEDS ORDERED: DOK1CAP7 PO (09:34)
[2020-08-09] MEDS ORDERED: XARE10TA PO (09:34)
[2020-08-09] MEDS ORDERED: MOM30SS2 PO (09:34)
--- NOTE | 2020-08-09 09:39 | DS.PDOC ---
Discharge Summary General Date of Admission Aug 07, 2020 at 16:36 Date of Discharge 08/09/2020 Discharge Summary PROCEDURES PERFORMED DURING STAY: 08/07 had Left hip cemented hemiarthroplasty with Dr. ANUPAMA DEWITT ADMITTING DIAGNOSES / DISCHARGE DIAGNOSES: Left hip pain - likely 2/2 left femoral neck fracture with varus position and slight comminution - likely 2/2 mechanical fall DVT prophylaxis COMPLICATIONS/CHIEF COMPLAINT: Hip pain HISTORY OF PRESENT ILLNESS: Patient is an 85-year-old female with no significant past medical history who was presented to the ER with complaints of left hip pain. Patient reported that she was grocery shopping at around 11:15 AM on 08/07 and had daryn mbled on her grocery cart and landed on her left side. She had reported some left hip pain at that time. She was helped up by staff. She checked out and got assistance to her car, loaded her groceries and drove to [facility] in [place] to receive her second COVID19 vaccination. Patient had saw her primary care provider at [facility], and imaging was completed there that had revealed evidence of left hip fracture. Patient was sent to the emergency room for further evaluation. Patient was admitted to the hospital service for further evaluation and treatment. Orthopedic surgery was called on consultation. HOSPITAL COURSE: Left hip pain - likely 2/2 left femoral neck fracture with varus position and slight comminution - likely 2/2 mechanical fall - Presented to ER with left pain; found to have L hip fracture - Patient has been working with physical therapy yesterday has progressed and has clear today - Pain is well controlled - Imaging noted above - s/p Correction on 08/[address] Dewitt - c/w Pain control with Percocet as an outpatient - Orthopedic surgery on consultation; Dr. Dewitt - Will have outpatient follow-up with primary care provider and orthopedic surgery within the next 7 days DVT prophylaxis - c/w Xarelto; as per orthopedic surgery DISCHARGE MEDICATIONS: Please see below. ALLERGIES: Please see below. PHYSICAL EXAMINATION ON DISCHARGE: Vitals (See below) General: Sitting up in chair, appears to be comfortable, is awake, alert and oriented to person, place and time HEENT: NC, AT CVS: +S1S2 Lungs: Fair air entry b/l, no appreciable wheezing, rhonchi, faint crackles at right lung base Abdomen: Remains soft without any distention or tenderness Extremities: No evidence of lower extremity edema LABORATORY DATA: Please see below. IMAGING: Left hip 08/07: Left femoral neck fracture with varus position and slight comminution. Left femur 08/07: Left femoral neck fracture with slight impaction and varus deformity. CXR 08/07: No acute pulmonary disease. Left hip 08/07: Interval placement of left hip hemiprosthesis in satisfactory position since a study done earlier in the day. CXR 08/09: No active disease. ACTIVITY: [As tolerated]. DISCHARGE PLAN: Follow-up with primary care provider and orthopedic surgery within the next 7 days Remain compliant with treatment plan and medications Return to the ER if you experience any problems DISPOSITION: Home with services DISCHARGE CONDITION: [Stable]. TIME SPENT ON DISCHARGE: 35 minutes. Vital Signs/I&Os Vital Signs Date Time Temp Pulse Resp B/P (MAP) Pulse Ox O2 Delivery O2 Flow Rate FiO2 08/09/20 09:16 16 08/09/20 07:38 1.0 08/09/20 07:04 98.2 08/09/20 06:15 91 136/66 (89) 96 Nasal Cannula I&O- Last 24 Hours up to 6 AM 08/09/20 06:00 Intake Total 900 ml Balance 900 ml Laboratory Data Labs 24H Laboratory Tests 2 08/09/20 06:10: Immature Granulocyte % (Auto) 0.4, Neutrophils (%) (Auto) 67.8H, Lymphocytes (%) (Auto) 20.4L, Monocytes (%) (Auto) 6.1H, Eosinophils (%) (Auto) 4.6H, Basophils (%) (Auto) 0.7, Neutrophils # (Auto) 4.6, Lymphocytes # (Auto) 1.4L, Monocytes # (Auto) 0.4, Eosinophils # (Auto) 0.3, Basophils # (Auto) 0.1, Nucleated Red Blood Cells % (auto) 0.0, Anion Gap 7L, Glomerular Filtration Rate > 60.0, Calcium Level 8.6L, Magnesium Level 1.9 CBC/BMP Laboratory Tests 08/09/20 06:10 Discharge Medications Scheduled Acetaminophen (Acetaminophen) 500 Mg Tablet, 1,000 MG PO DAILY, (Reported) Ascorbic Acid (Vitamin C) 500 Mg Tablet, 500 MG PO DAILY, (Reported) Cholecalciferol (Vitamin D3) (Vitamin D3) 1,000 Unit Tablet, 1,000 UNITS PO DAILY, (Reported) Diclofenac Sodium (Diclofenac Sodium) 75 Mg Tab, 75 MG PO DAILY, (Reported) Docusate Sodium (Dok) 100 Mg Capsule, 100 MG PO BID [place]-3 Fatty Acids/Fish Oil (Fish Oil 1,000 mg Capsule) 1 Each Capsule, 1,000 MG PO DAILY, (Reported) Rivaroxaban (Xarelto) 10 Mg Tablet, 10 MG PO DAILY@18 Zinc (Zinc) 50 Mg Tablet, 50 MG PO DAILY, (Reported) Scheduled PRN Cyclosporine (Restasis) 0.05% Droperette, 1 DROP OU BID PRN for DRY EYES, (Reported) PATIENT STATES SHE ONLY USES PRN Magnesium Hydroxide (Milk of Magnesia) 400 Mg/5 Ml Oral.susp, 30 ML PO DAILY PRN for CONSTIPATION Oxycodone/Acetaminophen (Oxycodone-Acetaminophen 5-325) 1 Each Tablet, 1 TAB PO Q4HP PRN for SEVERE PAIN (PS 8-10) Allergies Coded Allergies: No Known Allergies (Unverified , 08/07/20) NARCISA HAQ MD Aug 09, 2020 09:39
--- NOTE | 2020-08-09 10:27 | REP ---
INDICATION: Cough. COMPARISON: Comparison is made with today's chest x-ray.. TECHNIQUE: Helical scanning is acquired. 3 mm axial images are generated. Coronal and sagittal MPR and coronal MIP images are generated. FINDINGS: Preliminary digital nursing assoc radiograph demonstrates a linear density in the right base consistent with platelike atelectasis or fibrosis. On axial images, platelike atelectasis is seen in the right lower lobe posteriorly. There is also minimal linear platelike atelectasis in the lingula. No infiltrate is seen in the lung cerda. No endobronchial lesion is seen. Some vascular calcification is observed. No hilar or mediastinal mass or adenopathy is seen. No pleural or pericardial effusion is noted. Normal adrenal glands are seen. Visualized upper abdominal structures are unremarkable. No extra thoracic mass or adenopathy is seen. On bone window settings, no bony destructive lesion is appreciated. There is evidence of an old sternal fracture which is healed. IMPRESSION: No active cardiopulmonary disease. Mild bibasilar platelike atelectasis. No infiltrate seen. <Electronically signed by Maximus Marquis > 08/09/20 [id number]
[2020-08-09 14:00] VITALS: BP 132/61
== END 2020-08-09 14:50 | disposition home health service (06) | DRG 522 ==
LOC: M ED 14:12 → M ED INP 16:36 → M MS5PR 22:07
PROVIDERS: ADMIT Internal Medicine; ATTEND Internal Medicine
PROC: 0SRS0J9 Replacement of Left Hip Joint, Femoral Surface with Synthetic Substitute, Cemented, Open Approach (ICD-10-PCS; principal; 2020-08-07 18:31)
DX: S72.002A Fracture of unspecified part of neck of left femur, initial encounter for closed fracture (principal); W18.30XA Fall on same level, unspecified, initial encounter; Y92.512 Supermarket, store or market as the place of occurrence of the external cause; Y99.8 Other external cause status; Y93.89 Activity, other specified; Z98.41 Cataract extraction status, right eye; Z98.42 Cataract extraction status, left eye; Z94.7 Corneal transplant status; Z87.891 Personal history of nicotine dependence; Z79.899 Other long term (current) drug therapy

== ENCOUNTER → 2020-08-07 | Outpatient (CLI) | payer MEDICARE ==
[~2020-08-07] MED LIST changes: +ACET500T15 PO; +D31000TA2 PO; +DOK1CAP7 PO; +FISH1000 PO; +MOM30SS2 PO; +PERCOCET PO; +REST0.05 OU; +VITA-158 PO; +XARE10TA PO; +ZINC1TAB2 PO
--- NOTE | 2020-08-07 13:36 | REP ---
INDICATION: HIP PAINN. History of a fall earlier today. COMPARISON: None. TECHNIQUE: AP and frogleg views of the left hip are provided. FINDINGS: There is a left femoral neck fracture with slight comminution in varus position. The visualized left hemipelvis appears intact. Periarticular soft tissues are unremarkable. IMPRESSION: Left femoral neck fracture with varus position and slight comminution. <Electronically signed by Maximus Marquis > 08/07/20 [id number]
--- NOTE | 2020-08-07 13:38 | REP ---
INDICATION: HIP PAINN. Fall earlier this date. COMPARISON: None. TECHNIQUE: Four views of the left femur. FINDINGS: Four views of the demonstrate a femoral neck fracture on the left with slight impaction and varus deformity. Diffuse osteopenia is seen.. No other fracture is noted.. No opaque foreign body noted. There is osteoarthritic change at the knee. IMPRESSION: Left femoral neck fracture with slight impaction and varus deformity.. <Electronically signed by Maximus Marquis > 08/07/20 [id number]
== END ==
LOC: M ADAMS 12:58
PROVIDERS: ATTEND Physician Assistant Medical
DX: S72.002A Fracture of unspecified part of neck of left femur, initial encounter for closed fracture (principal); W19.XXXA Unspecified fall, initial encounter; Y92.481 Parking lot as the place of occurrence of the external cause; Y99.9 Unspecified external cause status

== ENCOUNTER → 2020-09-21 | Outpatient (CLI) | payer MEDICARE ==
[~2020-09-21] MED LIST changes: +ACET500T15 PO; +D31000TA2 PO; +DOK1CAP7 PO; +FISH1000 PO; +MOM30SS2 PO; +PERCOCET PO; +REST0.05 OU; +VITA-158 PO; +XARE10TA PO; +ZINC1TAB2 PO
--- NOTE | 2020-09-21 14:37 | REP ---
INDICATION: F/U AFTERCARE Status post arthroplasty. COMPARISON: None. TECHNIQUE: AP and frog-lateral views of the left hip. FINDINGS: Patient is status post left hip replacement. Normal appropriate appearance to the orthopedic hardware noted. Residual osseous structures are intact. Surrounding soft tissues are normal. IMPRESSION: Satisfactory left hip replacement radiographs. <Electronically signed by Kj Batista > 09/21/20 [id number]
== END ==
LOC: M SOG 13:20
PROVIDERS: ATTEND Orthopaedic Surgery Sports Medicine
DX: Z47.89 Encounter for other orthopedic aftercare (principal); Z96.642 Presence of left artificial hip joint

== ENCOUNTER → 2021-02-05 | Outpatient (CLI) | payer MEDICARE ==
[~2021-02-05] MED LIST changes: +DOK1CAP4 PO; -DOK1CAP7 PO
--- NOTE | 2021-02-05 11:41 | REP ---
INDICATION: ORTHO AFTERCARE. COMPARISON: 09/21/2020. TECHNIQUE: There are two views. FINDINGS: There is a left hip hemiarthroplasty with the components in satisfactory position and alignment on both projections. There is no interval change. IMPRESSION: Left hip hemiarthroplasty without interval change. <Electronically signed by Torres Sanderson > 02/05/21 0943
--- NOTE | 2021-02-05 11:42 | REP ---
INDICATION: OSTEOARTHRITIS. COMPARISON: None. TECHNIQUE: There are four views. FINDINGS: There is faintly visible chondrocalcinosis suggestive of CPPD. There is tricompartment osteoarthritis. There is a small suprapatellar effusion. There is demineralization. IMPRESSION: Chondrocalcinosis/CPPD. Tricompartment osteoarthritis. Small suprapatellar effusion. Demineralization. <Electronically signed by Torres Sanderson > 02/05/21 [id number]
== END ==
LOC: M SOG 11:10
PROVIDERS: ATTEND Orthopaedic Surgery Sports Medicine
DX: M17.11 Unilateral primary osteoarthritis, right knee (principal); Z47.89 Encounter for other orthopedic aftercare; Z96.642 Presence of left artificial hip joint; M11.261 Other chondrocalcinosis, right knee; M25.461 Effusion, right knee

== ENCOUNTER → 2021-06-22 | Outpatient (REF) | payer MEDICARE ==
[2021-06-22 12:50] LABS: BASO # 0.1 10^3/uL (0.0-0.2); EOS # 0.4 10^3/uL (0.0-0.5); EOS % 4.7 % (0.0-3.0); HEMOGLOBIN 13.2 g/dl (12.0-15.5); LYMPH # 2.6 10^3/uL (1.5-5.0); LYMPH % 30.6 % (24.0-44.0); MEAN CORPUSCULAR HEMOGLOBIN 31.5 pg (27.0-33.0); MEAN CORPUSCULAR HGB CONC 32.2 g/dl (32.0-36.5); MEAN CORPUSCULAR VOLUME 97.9 fl (80.0-96.0); MONO # 0.7 10^3/uL (0.0-0.8); NEUTROPHILS # 4.7 10^3/uL (1.5-8.5); NEUTROPHILS % 55.5 % (36.0-66.0); PLATELET COUNT, AUTOMATED 166 10^3/uL (150-450); RED BLOOD COUNT 4.19 10^6/uL (4.00-5.40); WHITE BLOOD COUNT 8.4 10^3/uL (4.0-10.0)
[2021-06-22 13:30] LABS: ALBUMIN 3.9 GM/DL (3.2-5.2); ALT/SGPT 18 U/L (12-78); BILIRUBIN,TOTAL 0.5 MG/DL (0.2-1.0); BLOOD UREA NITROGEN 16 MG/DL (7-18); CALCIUM LEVEL 10.2 MG/DL (8.8-10.2); CARBON DIOXIDE LEVEL 29 MEQ/L (21-32); CHLORIDE LEVEL 107 MEQ/L (98-107); CHOLESTEROL LEVEL 241 MG/DL (<200); CHOLESTEROL RISK RATIO 5.355 (<5); CREATININE FOR GFR 0.74 MG/DL (0.55-1.30); GLOMERULAR FILTRATION RATE > 60.0 (>32); GLUCOSE, FASTING 92 MG/DL (70-100); HDL CHOLESTEROL 45 MG/DL (>40); LDL CHOLESTEROL 140 MG/DL (<100); NON-HDL-C 196 MG/DL; POTASSIUM SERUM 5.1 MEQ/L (3.5-5.1); SODIUM LEVEL 141 MEQ/L (136-145); TOTAL PROTEIN 7.4 GM/DL (6.4-8.2); TRIGLYCERIDES LEVEL 282 MG/DL (<150)
== END ==
LOC: M SFHCADAM 10:20
PROVIDERS: ATTEND Physician Assistant Medical
DX: E78.5 Hyperlipidemia, unspecified (principal); G47.00 Insomnia, unspecified; M17.11 Unilateral primary osteoarthritis, right knee; R92.8 Other abnormal and inconclusive findings on diagnostic imaging of breast

== ENCOUNTER → 2021-09-14 | Outpatient (CLI) | payer MEDICARE ==
[~2021-09-14] MED LIST changes: -D31000TA2 PO; +VITA100093 PO
== END ==
LOC: M SOG 11:21
PROVIDERS: ATTEND Orthopaedic Surgery Sports Medicine
DX: S72.002D Fracture of unspecified part of neck of left femur, subsequent encounter for closed fracture with routine healing (principal); W18.30XD Fall on same level, unspecified, subsequent encounter; Y92.009 Unspecified place in unspecified non-institutional (private) residence as the place of occurrence of the external cause

== ENCOUNTER → 2021-12-15 | Outpatient (CLI) | payer MEDICARE | LOC: M SOG 08:14 | PROVIDERS: ATTEND Orthopaedic Surgery Adult Reconstructive Orthopaedic Surgery | DX: M17.11 Unilateral primary osteoarthritis, right knee (principal) ==

== ENCOUNTER → 2022-12-12 | Outpatient (CLI) | payer MEDICARE | LOC: M SOG 07:58 | PROVIDERS: ATTEND Orthopaedic Surgery | DX: M25.561 Pain in right knee (principal); M25.562 Pain in left knee ==

== ENCOUNTER → 2023-07-10 | Outpatient (CLI) | payer MEDICARE | LOC: M SOG 08:19 | PROVIDERS: ATTEND Orthopaedic Surgery | DX: Z96.642 Presence of left artificial hip joint (principal); M17.0 Bilateral primary osteoarthritis of knee ==

== ENCOUNTER → 2024-01-10 | Outpatient (CLI) | payer MEDICARE | LOC: M SOG 07:59 | PROVIDERS: ATTEND Orthopaedic Surgery | DX: M17.0 Bilateral primary osteoarthritis of knee (principal); M11.261 Other chondrocalcinosis, right knee; M11.262 Other chondrocalcinosis, left knee ==